=== PATIENT | male | born 1995 | race Caucasian/White ===

== ENCOUNTER 2018-02-26 12:26 | Emergency (ER) | payer BC, SELFPAY ==
[2018-02-26 12:29] VITALS: BP 159/98; PULSE 97; RESP 16; TEMP 37.4; O2SAT 97
--- NOTE | 2018-02-26 12:47 | ED.GENADUL ---
Disposition Clinical Impression: Ingrown left big toenail Disposition: HOME Condition: Fair Instructions: Ingrown Nail (ED) Additional Instructions: Warm soaks to left foot 5 times daily. Please try to keep the toe clean, he may use fingernail clippers to push the tissue away from the nail. Do not cut your nail at an angle, continue to cut them straight across. Please follow up with primary care within the next week if symptoms persist. If you develop spreading of the redness, fevers/chills, increased pain or other new/worsening symptoms please seek care urgently once again. Referrals: Chelsi Torres [Primary Care Provider] - Medical Decision Making - Medical Decision Making Patient presents today with chief complaint of toe pain ?1 month. On exam, patient is noted to have ingrown toenail on the lateral aspect of the great toe. Minimal erythema at the insertion site of the toenail. No surrounding cellulitis. No focal area of collection to suggest an abscess. He does report this is draining a few days ago. We did discuss that he may have developed a paronychia which is since drained. At this point, patient diagnosed with ingrown toenail. As I do not see an acute evidence of infection, I do not feel that removal of the nail is appropriate at this time. Noted feel the patient was treated with antibiotics. I rather advised that he do soaks 5-6 times daily. We discussed care of his toenails. Advise follow-up with primary care. He will call them today to schedule follow-up. We discussed new/worsening symptoms when to seek care urgently once again. All his questions and concerns were addressed and he is in agreement this plan. History of Present Illness - General Chief complaint: RashLesion Stated complaint: TOE INFECTION Time Seen by Provider: 02/26/18 12:45 Source: patient, RN notes reviewed Mode of arrival: ambulatory Limitations: no limitations - History of Present Illness Initial comments: Patient is a 22-year-old male presenting today with chief complaint of left great toe pain. He reports that the toe has been tender for the past month. He denies any fevers or chills. States that 3 days ago he noted pus coming from the lateral aspect of the great toe. He reports that he did contact his primary care physician who is not able to see him this afternoon prompting him to come to the emergency department. Has not noted any fevers or chills. Does feel that he got overheated at work today and felt suddenly nauseated. He denies any recent fevers or chills. States that he is pain primarily with pressure being applied to the great toe. Erythema and pain is lateral aspect of the great toe distally. - Related Data Ibuprofen 800 mg PO BID PRN PRN 07/14/14 Levalbuterol HCl [Xopenex] 1 puff PO PRN PRN 02/26/18 Allergies Allergy/AdvReac Type Severity Reaction Status Date / Time No Known Allergies Allergy Unverified 02/26/18 12:32 Review of Systems Constitutional: no symptoms reported. denies: chills, fever Respiratory: no symptoms reported Musculoskeletal: as per HPI Skin: as per HPI Neurological: as per HPI Past Medical History - Past Medical History Medical history: no medical history Surgical history: no surgical history General Exam - General Limitations: no limitations General appearance: alert, in no apparent distress - Eye Eye exam: Present: normal apperance - Respiratory Respiratory exam: Present: normal lung sounds bilaterally. Absent: respiratory distress - Cardiovascular Cardiovascular Exam: Present: regular rate, normal rhythm, normal heart sounds - Extremities Exam Extremities exam: Present: tenderness, normal capillary refill. Absent: normal inspection (Left lower extremity is significant for erythema along the lateral aspect of the great toe. No drainage currently. No swelling or fluid collection around the nail. Exam is consistent with an ingrown toenail. No signs of focal abscess. Erythema is localized to the lateral aspect of the toe. Erythema is noted. He is point tender at the nail insertion site.), joint swelling - Neurological Exam Neurological exam: Present: alert, normal gait - Psychiatric Psychiatric exam: Present: normal affect, normal mood - Skin Skin exam: Absent: normal color (As above) Course Vital Signs - 24 hr 02/26/18 12:29 Temperature 37.4 C Pulse 97 H Respiratory 16 Rate Blood Pressure 159/98 Pulse Oximetry 97
[2018-02-26 13:02] VITALS: BP 159/98; PULSE 97; RESP 16; TEMP 37.4; O2SAT 97
== END 2018-02-26 13:02 | disposition home or self-care (01) ==
PROVIDERS: Emergency Provider Student in an Organized Health Care Education/Training Program; PCP Family Medicine
DX: L60.0 Ingrowing nail (principal)
CPT/HCPCS: 99281

== ENCOUNTER 2018-09-27 10:00 | Emergency (ER) | payer OTHER, SELFPAY ==
[2018-09-27 10:09] VITALS: BP 134/82; PULSE 88; RESP 16; TEMP 36.6; O2SAT 93
[2018-09-27 10:28] VITALS: RESP 4; O2SAT 93
[2018-09-27] MEDS: Albuterol/Ipratropium 3 ML UPD VIAL UPD ×2 (10:28→11:15)
--- NOTE | 2018-09-27 10:48 | DI.RAD_ITS ---
SYMPTOMS/DIAGNOSIS: COUGH CHEST X-RAY, FRONTAL AND LATERAL VIEWS: Comparison is 04/20/11. The heart is normal in size. The lungs are clear. The mediastinal structures and pleura appear intact. IMPRESSION: Normal chest.
[2018-09-27 11:15] VITALS: RESP 4
[2018-09-27] MEDS: Normal Saline 1,000 ML 1000 ML IV (11:30)
[2018-09-27] MEDS: Ketorolac 30 MG/ML VIAL IVP (11:32)
[2018-09-27 11:42] LABS: Abs Immature Grans 0.02 k/cumm (0.0-0.09); Absolute Basophil Count 0.03 k/cumm (0.0-0.2); Absolute Eosinophil Count 0.52 k/cumm (0.0-0.7); Absolute Lymphocyte Count 1.72 k/cumm (1.2-3.4); Absolute Monocyte Count 0.73 k/cumm (0.11-0.7); Absolute Neutrophil Count 5.37 k/cumm (1.2-6.7); Basophils % 0.4; Eosinophils % 6.2; HCT 44.9 % (40.0-50.0); Immature Grans % 0.2; Lymphocytes % 20.5; Mean Corp. HGB Concentration 35.6 g/dL (32.0-36.0); Mean Corpuscular Hemoglobin 30.9 pg (27.0-33.0); Mean Corpuscular Volume 86.8 fL (80-95); Mean Platelet Volume 9.7 fL (8.0-11.0); Monocytes % 8.7; Platelet Count 224 x1000/uL (130-400); RBC 5.17 m/cumm (4.50-6.00); RBC Distribution Width 12.6 % (11.8-14.1); White Blood Cell Count 8.39 k/cumm (4.4-10.8)
--- NOTE | 2018-09-27 11:42 | W.ED.GENAD ---
Discharge Plan Disposition Patient Disposition: HOME Condition: Stable Discharge Details Chief Complaint: RespSymp Clinical Impression: Asthma exacerbation, Infection, respiratory tract Primary Care Provider: Chelsi Torres ED Provider: Kel Rodney Home Meds and New Rx's Prescriptions: New albuterol sulfate 1.25 mg/3 mL solution for nebulization 1.25 mg IH Q4H PRN (Reason: shortness of breath or wheezing) Qty: 75 RF: 0 prednisone 20 mg tablet 40 mg PO DAILY 5 Days Qty: 10 RF: 0 doxycycline hyclate 100 mg capsule 100 mg PO BID Qty: 14 RF: 0 Continued ibuprofen 800 MG tablet 800 mg PO BID PRN PRNRF: 0 levalbuterol HCl [Xopenex] 1.25 MG/3 ML solution for nebulization 1 puff PO PRN PRNRF: 0 guaifenesin 600 mg Tablet Extended Release 12hr 600 mg PO Q12H RF: 0 Discharge Instructions Instructions: Asthma (ED), Cold Symptoms (ED) Additional Instructions: Please take medications as prescribed and ensure that you complete the full course of antibiotics. Stay well-hydrated and get plenty of rest during illness and feel free to return to the emergency department for any new or worsening symptoms or further concerns you may have. If not improving towards in the antibiotics feel free to follow-up with your primary care provider as needed for reassessment. Stand Alone Forms: Work Release Referrals: Chelsi Torres [Primary Care Provider] - (As needed for reassessment) Discharge Data Discharge Date/Time-TO BE ENTERED AT DEPARTURE: 09/27/18 14:00 Medical Decision Making Patient presenting to the emergency department for chief complaint of cough and cold symptoms. Patient states that he has been fighting with an illness for 3 weeks with a cough for 2 weeks it resolved but then within the last week has had new and worsening symptoms that were worse than before. Patient states significant wheezing, chest tightness, cough. Patient does state history of asthma otherwise healthy. Review of vital signs does show mild hypoxia, diffuse wheezing throughout lung assessment, nontoxic appearing patient, there are other signs consistent with URI. Given duration of illness I do feel that labs, influenza testing, chest x-ray is warranted. Pending results patient given DuoNeb, IV fluids, ketorolac. Review of radiological imaging shows no acute findings within the chest, patient has no evidence of leukocytosis, flu negative, otherwise nondiagnostic non-worrisome labs. Given duration of symptoms patient was placed on doxycycline, given steroids for concern of asthma exacerbation, and encouraged to stay well-hydrated and follow-up with primary care provider for reassessment. Close return precautions were discussed. After discussion of diagnosis and plan of care patient has no further needs, questions, or concerns and states clear understanding to return to the emergency department for any worsening symptoms. HPI General Mode of arrival: ambulatory. Date/Time Provider Initiated Documentation: 09/27/18 10:27. Limitations to Documentation: no limitations. Information obtained by: patient and RN notes reviewed. History of Present Illness 22 year old M presents to the emergency department with the chief complaint of Cough and cold symptoms, described as moderate, with intensity rated at 7. Quality is described as aching, and is localized to the chest. Patient started experiencing this week(s) (1) and it has been constant. Patient did receive the following treatments prior to arrival, other (Albuterol treatment) Related Data Home Medications Medication Instructions Recorded Confirmed ibuprofen 800 mg PO BID PRN PRN 07/14/14 09/27/18 levalbuterol HCl [Xopenex] 1 puff PO PRN PRN 02/26/18 09/27/18 albuterol sulfate 1.25 mg IH Q4H PRN #75 ml 09/27/18 doxycycline hyclate 100 mg PO BID #14 cap 09/27/18 guaifenesin 600 mg PO Q12H 09/27/18 09/27/18 prednisone 40 mg PO DAILY 5 Days #10 tab 09/27/18 Previous Rx's Medication Instructions Recorded albuterol sulfate 1.25 mg IH Q4H PRN #75 ml 09/27/18 doxycycline hyclate 100 mg PO BID #14 cap 09/27/18 prednisone 40 mg PO DAILY 5 Days #10 tab 09/27/18 Allergies Allergy/AdvReac Type Severity Reaction Status Date / Time No Known Allergies Allergy Unverified 09/27/18 10:18 General Stated Complaint: RespSymp SELIN: 3 Review of Systems Constitutional Denies body ache(s), Denies chills, Denies fever(s), Denies headache(s) and Reports malaise Eyes Denies eye discharge ENT Reports as per HPI, Denies ear discharge, Denies otalgia, Denies headache(s), Reports nasal congestion, Denies nasal discharge, Denies neck pain, Reports sore throat and Denies throat swelling Cardiovascular Denies chest pain and Reports dyspnea Respiratory Reports cough and Reports dyspnea Musculoskeletal Denies joint swelling and Denies neck pain Integumentary/Breasts Denies rash Neurologic Denies headache(s) Allergic/Immunologic Denies throat swelling [facility] Medical History Environmental and seasonal allergies (Acute) Asthma (Chronic) Social History Smoking/Tobacco Use Status: Former Tobacco Use Alcohol Intake: current Alcohol Intake frequency: a few times a week Drug use: Occasionally Substance use type: marijuana Do you feel safe at home: Yes Do you feel safe in your relationship?: Yes Exam Const General: cooperative, comfortable and no acute distress Orientation: alert and awake HENMT Head: normal to inspection, normocephalic and atraumatic Ears: hearing grossly normal bilaterally and TM's normal bilaterally General nose exam: external nose normal Face and sinus: normal facial exam, sinuses nontender and no erythema Mouth: oral mucosae normal, no drooling, no muffled voice and no trismus Throat: posterior oropharynx normal, tonsils normal and uvula midline Neck Neck: normal visual inspection, full ROM, no meningeal signs, trachea midline, supple and lymphadenopathy (Left-sided cervical lymphadenopathy) Resp Effort & Inspection: normal respiratory effort, able to speak in complete sentences and cough Quality of cough: dry Auscultation: wheezes expiratory wheezes and scattered wheezes Cardio Rate: regular rate Rhythm: regular rhythm Heart Sounds: S1 normal, S2 normal, normal S1 and S2, no click, no gallops, no murmurs and no rubs Skin General skin exam: no rashes or lesions noted and dry skin (warm) Course Vital Signs Temperature 36.6 C 09/27/18 10:09 Pulse 88 09/27/18 10:09 Respiratory Rate 16 09/27/18 10:09 Blood Pressure 134/82 09/27/18 10:09 Pulse Oximetry 93 L 09/27/18 10:09 Temperature 36.6 C 09/27/18 10:09 Temperature Source Temporal Artery Scan 09/27/18 10:09 Pulse 88 09/27/18 10:09 Respiratory Rate 16 09/27/18 10:09 Respiratory Effort 09/27/18 10:16 Respiratory Depth Normal 09/27/18 10:16 Blood Pressure 134/82 09/27/18 10:09 Blood Pressure Position Sitting 09/27/18 10:09 Pulse Oximetry 93 L 09/27/18 10:28 Oxygen Delivery Method Room Air 09/27/18 10:28 Oxygen Flow Rate 0 09/27/18 10:28 Pain Level 6 09/27/18 10:09 Lab/Test Results Lab/Test Results: 09/27/18 11:20 Nasopharynx Influenza Types A,B Antigen - Pending
--- NOTE | 2018-09-27 11:45 | ED.GENADUL_ITS ---
Discharge Plan Disposition Patient Disposition: HOME Condition: Stable Discharge Details Chief Complaint: RespSymp Clinical Impression: Asthma exacerbation, Infection, respiratory tract Primary Care Provider: Chelsi Torres ED Provider: Kel Rodney Home Meds and New Rx's Prescriptions: New albuterol sulfate 1.25 mg/3 mL solution for nebulization 1.25 mg IH Q4H PRN (Reason: shortness of breath or wheezing) Qty: 75 RF: 0 prednisone 20 mg tablet 40 mg PO DAILY 5 Days Qty: 10 RF: 0 doxycycline hyclate 100 mg capsule 100 mg PO BID Qty: 14 RF: 0 Continued ibuprofen 800 MG tablet 800 mg PO BID PRN PRNRF: 0 levalbuterol HCl [Xopenex] 1.25 MG/3 ML solution for nebulization 1 puff PO PRN PRNRF: 0 guaifenesin 600 mg Tablet Extended Release 12hr 600 mg PO Q12H RF: 0 Discharge Instructions Instructions: Asthma (ED), Cold Symptoms (ED) Additional Instructions: Please take medications as prescribed and ensure that you complete the full course of antibiotics. Stay well-hydrated and get plenty of rest during illness and feel free to return to the emergency department for any new or worsening symptoms or further concerns you may have. If not improving towards in the antibiotics feel free to follow-up with your primary care provider as needed for reassessment. Stand Alone Forms: Work Release Referrals: Chelsi Torres [Primary Care Provider] - (As needed for reassessment) Discharge Data Discharge Date/Time-TO BE ENTERED AT DEPARTURE: 09/27/18 14:00 Medical Decision Making Patient presenting to the emergency department for chief complaint of cough and cold symptoms. Patient states that he has been fighting with an illness for 3 weeks with a cough for 2 weeks it resolved but then within the last week has had new and worsening symptoms that were worse than before. Patient states significant wheezing, chest tightness, cough. Patient does state history of asthma otherwise healthy. Review of vital signs does show mild hypoxia, diffuse wheezing throughout lung assessment, nontoxic appearing patient, there are other signs consistent with URI. Given duration of illness I do feel that labs, influenza testing, chest x-ray is warranted. Pending results patient given DuoNeb, IV fluids, ketorolac. Review of radiological imaging shows no acute findings within the chest, patient has no evidence of leukocytosis, flu negative, otherwise nondiagnostic non- worrisome labs. Given duration of symptoms patient was placed on doxycycline, given steroids for concern of asthma exacerbation, and encouraged to stay well- hydrated and follow-up with primary care provider for reassessment. Close return precautions were discussed. After discussion of diagnosis and plan of care patient has no further needs, questions, or concerns and states clear understanding to return to the emergency department for any worsening symptoms. HPI General Mode of arrival: ambulatory . Date/Time Provider Initiated Documentation: 09/27/18 10:27 . Limitations to Documentation: no limitations . Information obtained by: patient and RN notes reviewed . History of Present Illness 22 year old M presents to the emergency department with the chief complaint of Cough and cold symptoms, described as moderate, with intensity rated at 7. Quality is described as aching, and is localized to the chest. Patient started experiencing this week(s) (1) and it has been constant. Patient did receive the following treatments prior to arrival, other (Albuterol treatment) Related Data Home Medications Medication Instructions Recorded Confirmed ibuprofen 800 mg PO BID PRN PRN 07/14/14 09/27/18 levalbuterol HCl [Xopenex] 1 puff PO PRN PRN 02/26/18 09/27/18 albuterol sulfate 1.25 mg IH Q4H PRN #75 ml 09/27/18 doxycycline hyclate 100 mg PO BID #14 cap 09/27/18 guaifenesin 600 mg PO Q12H 09/27/18 09/27/18 prednisone 40 mg PO DAILY 5 Days #10 tab 09/27/18 Previous Rx's Medication Instructions Recorded albuterol sulfate 1.25 mg IH Q4H PRN #75 ml 09/27/18 doxycycline hyclate 100 mg PO BID #14 cap 09/27/18 prednisone 40 mg PO DAILY 5 Days #10 tab 09/27/18 Allergies Allergy/AdvReac Type Severity Reaction Status Date / Time No Known Allergies Allergy Unverified 09/27/18 10:18 General Stated Complaint: RespSymp SELIN: 3 Review of Systems Constitutional Denies body ache(s), Denies chills, Denies fever(s), Denies headache(s) and Reports malaise Eyes Denies eye discharge ENT Reports as per HPI, Denies ear discharge, Denies otalgia, Denies headache(s), Reports nasal congestion, Denies nasal discharge, Denies neck pain, Reports sore throat and Denies throat swelling Cardiovascular Denies chest pain and Reports dyspnea Respiratory Reports cough and Reports dyspnea Musculoskeletal Denies joint swelling and Denies neck pain Integumentary/Breasts Denies rash Neurologic Denies headache(s) Allergic/Immunologic Denies throat swelling [facility] [place] Medical History Environmental and seasonal allergies (Acute) Asthma (Chronic) Social History Smoking/Tobacco Use Status: Former Tobacco Use Alcohol Intake: current Alcohol Intake frequency: a few times a week Drug use: Occasionally Substance use type: marijuana Do you feel safe at home: Yes Do you feel safe in your relationship?: Yes Exam Const General: cooperative, comfortable and no acute distress Orientation: alert and awake HENMT Head: normal to inspection, normocephalic and atraumatic Ears: hearing grossly normal bilaterally and TM's normal bilaterally General nose exam: external nose normal Face and sinus: normal facial exam, sinuses nontender and no erythema Mouth: oral mucosae normal, no drooling, no muffled voice and no trismus Throat: posterior oropharynx normal, tonsils normal and uvula midline Neck Neck: normal visual inspection, full ROM, no meningeal signs, trachea midline, supple and lymphadenopathy (Left-sided cervical lymphadenopathy) Resp Effort & Inspection: normal respiratory effort, able to speak in complete sentences and cough Quality of cough: dry Auscultation: wheezes expiratory wheezes and scattered wheezes Cardio Rate: regular rate Rhythm: regular rhythm Heart Sounds: S1 normal, S2 normal, normal S1 and S2, no click, no gallops, no murmurs and no rubs Skin General skin exam: no rashes or lesions noted and dry skin (warm) Course Vital Signs Temperature 36.6 C 09/27/18 10:09 Pulse 88 09/27/18 10:09 Respiratory Rate 16 09/27/18 10:09 Blood Pressure 134/82 09/27/18 10:09 Pulse Oximetry 93 L 09/27/18 10:09 Temperature 36.6 C 09/27/18 10:09 Temperature Source Temporal Artery Scan 09/27/18 10:09 Pulse 88 09/27/18 10:09 Respiratory Rate 16 09/27/18 10:09 Respiratory Effort 09/27/18 10:16 Respiratory Depth Normal 09/27/18 10:16 Blood Pressure 134/82 09/27/18 10:09 Blood Pressure Position Sitting 09/27/18 10:09 Pulse Oximetry 93 L 09/27/18 10:28 Oxygen Delivery Method Room Air 09/27/18 10:28 Oxygen Flow Rate 0 09/27/18 10:28 Pain Level 6 09/27/18 10:09 Lab/Test Results Lab/Test Results: 09/27/18 11:20 Nasopharynx Influenza Types A,B Antigen - Pending
[2018-09-27 11:49] LABS: Mono Screening Negative (Negative)
[2018-09-27 12:00] LABS: ALT 34 U/L (12-78); AST 22 U/L (15-37); Albumin 4.3 g/dL (3.4-5.0); Alkaline Phosphatase 79 U/L (46-116); Anion Gap 10.6 mmol/L (3-11); BUN 13 mg/dL (7-18); Bilirubin, Total 0.7 mg/dL (0.2-1.0); CO2 28.4 mmol/L (21.0-32.0); CREATININE 1.07 mg/dL (0.70-1.30); Calcium 9.7 mg/dL (8.5-10.1); Chloride 101 mmol/L (98-107); Glucose 84 mg/dL (70-100); Potassium 3.8 mmol/L (3.5-5.1); Sodium 140 mmol/L (136-145); Total Protein 8.2 g/dL (6.4-8.2)
[2018-09-27 12:14] LABS: D-Dimer 214 ng/mlFEU (<500)
[2018-09-27] MEDS: predniSONE 20 MG TAB 60 MG PO (13:51)
[2018-09-27] MEDS: Doxycycline Hyclate 100 MG CAP PO (13:51)
[2018-09-27 13:53] VITALS: BP 139/90; PULSE 84; RESP 16; TEMP 37; O2SAT 96
[2018-09-27 14:00] VITALS: BP 139/90; PULSE 84; RESP 16; TEMP 37; O2SAT 96
== END 2018-09-27 14:00 | disposition home or self-care (01) ==
PROVIDERS: Emergency Provider Nurse Practitioner Family; PCP Family Medicine
DX: J45.901 Unspecified asthma with (acute) exacerbation (principal); J06.9 Acute upper respiratory infection, unspecified
CPT/HCPCS: 36415; 80053; 87449; 94640; 96361; 96374; 99284; 71046; 85025; 85379; 86308; J1885; J7512; J7620

== ENCOUNTER 2018-10-08 09:20 | Emergency (ER) | payer OTHER, SELFPAY ==
[2018-10-08 09:26] VITALS: BP 160/89; PULSE 101; RESP 18; TEMP 36.8; O2SAT 95
--- NOTE | 2018-10-08 10:01 | DI.RAD_ITS ---
SYMPTOM/DIAGNOSIS: PAIN, S/P FALL RIGHT ANKLE: There is a fracture extending obliquely through the distal fibula to the level of the ankle mortise. No distal tibial fracture or ankle mortise widening is seen. IMPRESSION: Distal fibular fracture. RIGHT FOOT: No fracture or dislocation is seen. IMPRESSION: Negative right foot. RIGHT TIB-FIB: There is a minimally displaced fracture of the lateral malleolus extending to the level of the ankle mortise. There is no visible ankle mortise widening. No fractures are seen more proximally in the tibia or fibula. IMPRESSION: Lateral malleolar fracture.
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
[2018-10-08] MEDS: Acetaminophen 500 MG TAB 1000 MG PO (10:06)
== END 2018-10-08 11:02 | disposition home or self-care (01) ==
PROVIDERS: Emergency Provider Emergency Medicine; PCP Family Medicine
DX: S82.831A Other fracture of upper and lower end of right fibula, initial encounter for closed fracture (principal); S80.11XA Contusion of right lower leg, initial encounter; S90.31XA Contusion of right foot, initial encounter; V86.02XA Driver of snowmobile injured in traffic accident, initial encounter
CPT/HCPCS: 27786; 99284; 73590; 73610; 73630; E0114; L4361

== ENCOUNTER 2018-10-17 10:19 | Outpatient (CLI) | payer OTHER, SELFPAY ==
--- NOTE | 2018-10-17 10:16 | DI.RAD_ITS ---
SYMPTOMS/DIAGNOSIS: F/U FRACTURE RIGHT ANKLE: A somewhat oblique projection of the right ankle is provided. On a previous examination of 10/08, note is made of an oblique fracture of the distal fibula which appears to be in anatomic position when compared with the previous images, however, if there is any further clinical question, a complete ankle series is suggested.
== END 2018-10-17 10:39 ==
PROVIDERS: PCP Family Medicine; Visit Provider Orthopaedic Surgery
DX: S82.831D Other fracture of upper and lower end of right fibula, subsequent encounter for closed fracture with routine healing (principal)
CPT/HCPCS: 73600

== ENCOUNTER 2018-10-31 11:39 | Outpatient (CLI) | payer OTHER, SELFPAY ==
--- NOTE | 2018-10-31 11:36 | DI.RAD_ITS ---
SYMPTOMS/DIAGNOSIS: F/U FX RIGHT ANKLE: When compared with previous images, again noted is a minimally displaced oblique fracture of the lateral malleolus. There is some early callus formation at the fracture margins and nothing to suggest that healing is not progressing normally.
== END 2018-10-31 11:59 ==
PROVIDERS: PCP Family Medicine; Visit Provider Orthopaedic Surgery
DX: S82.62XD Displaced fracture of lateral malleolus of left fibula, subsequent encounter for closed fracture with routine healing
CPT/HCPCS: 73610

== ENCOUNTER 2018-11-15 09:41 | Outpatient (CLI) | payer OTHER, SELFPAY ==
--- NOTE | 2018-11-15 09:37 | DI.RAD_ITS ---
SYMPTOMS/DIAGNOSIS: F/U FX RIGHT ANKLE: Three views were obtained. Previously described fracture of the distal fibula again noted which appears to be healing with no change in alignment in comparison with examination of 10/31.
== END 2018-11-15 10:01 ==
PROVIDERS: PCP Family Medicine; Visit Provider Orthopaedic Surgery
DX: S82.831D Other fracture of upper and lower end of right fibula, subsequent encounter for closed fracture with routine healing (principal)
CPT/HCPCS: 73610

== ENCOUNTER 2018-12-13 09:02 | Outpatient (CLI) | payer OTHER, SELFPAY ==
--- NOTE | 2018-12-13 08:58 | DI.RAD_ITS ---
SYMPTOMS/DIAGNOSIS: RT LATERAL MALLEOLUS FX RIGHT ANKLE: When compared with previous images, again noted is a fracture of the distal fibula with no interval change in apposition or alignment. There is nothing to suggest that healing is not progressing satisfactorily at the present time.
== END 2018-12-13 09:22 ==
PROVIDERS: PCP Family Medicine; Visit Provider Physician Assistant
DX: S82.64XD Nondisplaced fracture of lateral malleolus of right fibula, subsequent encounter for closed fracture with routine healing (principal)
CPT/HCPCS: 73600

== ENCOUNTER 2024-08-19 18:00 | Inpatient (IN) | payer SELFPAY ==
[2024-08-19] VITALS (39 sets, daily range): BP systolic 132–188; BP diastolic 71–104; PULSE 97–130; RESP 5–26; TEMP 36.8; O2SAT 92–100
[2024-08-19] MEDS: MAGNESIUM SULFATE 2 GM/50 ML BAG IV_INF (18:59)
--- NOTE | 2024-08-19 19:00 | DI.RAD_ITS ---
Exam(s) XR CHEST 2V PA LATERAL EXAM: XR CHEST 2V PA LATERAL CLINICAL HISTORY: flu A +, SOB TECHNIQUE: 2D digital imaging was performed of the chest. Two images were obtained. PA and lateral views were obtained. COMPARISON: CR XR CHEST 2V PA LATERAL from 09/27/2018 FINDINGS: MEDIASTINUM: Normal. HEART: Normal. PULMONARY VASCULATURE: Normal. LUNGS: There is mild peribronchial thickening which can be seen with bronchitis/reactive airways dise ase. No focal consolidating infiltrates are seen. PLEURAL SPACE: No pleural effusion or pneumothorax. BONE:Within normal limits for the patient's age. OTHER FINDINGS:Normal. IMPRESSION: Mild peribronchial thickening which can be seen with bronchitis/reactive airways disease. No focal c onsolidating infiltrates are seen. DATA REPOSITORY: RADIATION DOSE DELIVERED:
[2024-08-19] MEDS: Albuterol/Ipratropium 3 ML UPD VIAL 9 ML UPD (19:02)
[2024-08-19] MEDS: predniSONE 20 MG TAB 60 MG PO (19:03)
--- NOTE | 2024-08-19 19:08 | ED.GENADUL_ITS ---
Discharge Plan Disposition Patient Disposition: Admit to [facility] Discharge Details Clinical Impression: Influenza A, Asthma with severe exacerbation Primary Care Provider: Chelsi Torres ED Provider: Vandana Cano Home Meds and New Rx's Prescriptions: No Action albuterol sulfate 2.5 mg /3 mL (0.083 %) solution for nebulization 2.5 mg inhalation Q4H PRN (Reason: shortness of breath or wheezing) Qty: 180 0RF ibuprofen 800 MG tablet 800 mg PO BID PRN PRN levalbuterol HCl [Xopenex] 1.25 MG/3 ML solution for nebulization 1 puff PO PRN PRN albuterol sulfate 1.25 mg/3 mL solution for nebulization 1.25 mg IH Q4H PRN (Reason: shortness of breath or wheezing) Qty: 75 0RF HPI General Date/Time Provider Initiated Documentation: 08/19/24 18:14 . HPI Narrative: Wayne is a 28year old male who presents to the emergency department today for evaluation of asthma. He reports that he was treated for asthma exacerbation 1 week ago, completed 5-day course of prednisone 40 mg daily. Yesterday he started feeling unwell again, with increasing shortness of breath. Today developed subjective fever/chills, body aches, congestion, sore throat, nonproductive cough. Denies nausea/vomiting, abdominal pain, change in bowel or bladder function.. Past medical history is significant for asthma, has not required intubation but has been admitted for PNA in the past. Physical exam remarkable for significantly dyspneic patient. Tight wheezes throughout all lung bergman. Tachycardia, normal heart sounds. No cyanosis noted. D/dx includes but is not limited to: viral illness such as COVID-19 or flu, asthma exacerbation, pneumothorax, PNA I independently interpreted the following tests: COVID/flu positive for flu A. CXR reassuring, no obvious infiltrate noted (this was confirmed by radiologist). CBC, BMP, and VBG all reassuring. While in the emergency department, Wayne received aggressive management of asthma exacerbation with limited improvement of symptoms; a total of 3 DuoNeb's , followed by 2 additional albuterol nebulizers were given, as well as prednisone 60 mg p.o., Solu-Medrol 125 mg IV, and Magnesium sulfate 2 g. After receiving medications, Wayne continued to have significant work of breathing and wheezing as soon as the nebulizer it is completed. A 10 mg continuous albuterol nebulizer initiated. IV fluids given; Toradol given for body aches. Antiviral therapy with Tamiflu administered p.o. Vital signs have remained stable, however patient has remained tachycardic with heart rate in the 120s. No hypoxia or tachypnea noted. Discussed patient presentation and results with Dr. Argueta, [facility] hospitalist. Patient to be admitted for management of severe asthma exacerbation. Related Data Home Medications ?Medication ?Instructions ?Recorded ?Confirmed ibuprofen 800 mg tablet 800 mg PO BID PRN PRN 07/14/14 08/19/24 levalbuterol HCl 1.25 mg/3 mL 1 puff PO PRN PRN 02/26/18 08/19/24 solution for nebulization (Xopenex) albuterol sulfate 1.25 mg/3 mL 1.25 mg (3 mL) inhalation Q4H PRN 09/27/18 08/19/24 solution for nebulization shortness of breath or wheezing #75 mL albuterol sulfate 2.5 mg/3 mL 2.5 mg (3 mL) inhalation Q4H PRN 08/12/24 08/19/24 (0.083 %) solution for nebulization shortness of breath or wheezing #180 mL Previous Rx's ?Medication ?Instructions ?Recorded albuterol sulfate 1.25 mg/3 mL 1.25 mg (3 mL) inhalation Q4H PRN 09/27/18 solution for nebulization shortness of breath or wheezing #75 mL albuterol sulfate 2.5 mg/3 mL 2.5 mg (3 mL) inhalation Q4H PRN 08/12/24 (0.083 %) solution for nebulization shortness of breath or wheezing #180 mL Allergies Allergy/AdvReac Type Severity Reaction Status Date / Time No Known Allergies Allergy Unverified 08/19/24 18:08 General Stated Complaint: RespSymp SELIN: 4 Review of Systems Narrative: See HPI Exam Const General: cooperative, well developed, in distress respiratory, anxious and ill appearing Nutritional Appearance: average body habitus and well nourished Orientation: alert and oriented x3 Resp Effort & Inspection: labored, tripod positioning, uses accessory muscles and prolonged expiratory phase Auscultation: diminished lung sounds and wheezes expiratory wheezes, inspiratory wheezes and scattered wheezes Cardio Rate: tachycardic Rhythm: regular rhythm Skin General skin exam: no rashes or lesions noted Course Vital Signs Vital signs: Vital Signs Temperature 36.8 C 08/19/24 18:03 Pulse 112 H 08/19/24 18:03 Respiratory Rate 16 08/19/24 18:03 Blood Pressure 151/91 H 08/19/24 18:03 Pulse Oximetry 95 08/19/24 18:03 Temperature 36.8 C 08/19/24 18:31 Temperature Source Oral 08/19/24 18:31 Pulse 112 H 08/19/24 18:31 Respiratory Rate 16 08/19/24 18:31 Blood Pressure 151/91 H 08/19/24 18:31 Pulse Oximetry 95 08/19/24 18:31 Oxygen Delivery Method Room Air 08/19/24 18:31 Oxygen Flow Rate 0 08/19/24 18:31 Pain Level 6 08/19/24 18:31 Medical Decision Making Quality:SDOH Health Related Social Needs: No Data to Display PFSH All Active Problems (Updated 08/19/24 @ 22:53 by Vandana Harper) Asthma with severe exacerbation (Acute) Influenza A (Acute) Fracture of lateral malleolus of right ankle (Acute 10/08/18) Medical History (Updated 08/19/24 @ 22:53 by Vandana Harper) Environmental and seasonal allergies Asthma Social History Smoking/Tobacco Use Status: Never Smoking risk assessment performed?: Yes Alcohol Intake: current Alcohol Intake frequency: a few times a week Drug use: Occasionally Substance use type: does not use Do you feel safe at home: Yes Do you feel safe in your relationship?: Yes
--- NOTE | 2024-08-19 20:17 | DI.VRAD_ITS ---
PROCEDURE INFORMATION: Exam: XR Chest Exam date and time: 08/19/2024 7:32 PM Age: 28 years old Clinical indication: Shortness of breath; Flu a +, SOB TECHNIQUE: Imaging protocol: Radiologic exam of the chest. Views: 2 views. COMPARISON: CR XR CHEST 2V PA LATERAL 09/27/2018 11:54 AM FINDINGS: Lungs: There is mild central peribronchial thickening, increased from prior study. No pulmonary parenchymal airspace opacities are identified. There is no pulmonary vascular congestion. Pleural spaces: There are no pleural effusions present. There is no evidence of pneumothorax. Heart/Mediastinum: The cardiomediastinal silhouette is within normal limits. Bones/joints: Unremarkable. IMPRESSION: 1. Mild central peribronchial thickening, which can be seen in the setting of bronchitis. Recommend clinical correlation. 2. No pulmonary parenchymal airspace opacities identified. Dictated and Authenticated by: Christian Preciado MD. Orderin Anand Ross MD
[2024-08-19] MEDS: Albuterol 2.5 MG/3 ML INH SOLN VIAL UPD (20:52)
[2024-08-19] MEDS: methylPREDNISolone SUCC 125 MG VIAL IVP (20:52)
[2024-08-19] MEDS: Albuterol 2.5 MG/3 ML INH SOLN VIAL 10 MG UPD (21:35)
--- NOTE | 2024-08-19 21:56 | W.EDPROG ---
Date of service: 08/19/24 Time of Service: 23:02 Medical Decision Making Case discussed with nurse practitioner. A [id number] evaluation was provided by me secondary to medical complexity. Patient is a 28-year-old gentleman with past medical history of asthma. Presented with shortness of breath. Was found to have influenza A. Patient had received albuterol, magnesium, steroids and was still having some persistent difficulty with breathing. On my evaluation, he had a mild increase in work of breathing, no significant tachypnea. He was not hypoxic. I reviewed his chest x-ray which does not reveal a focal consolidation. The patient was started on a continuous albuterol nebulizer treatment. At this point will admit to the hospital for further management. He was given Tamiflu and IV fluids as well. Quality:SDNV Health Related Social Needs: No Data to Display Critical Care Time Critical Care Time Critical Care Time: Yes Total Critical Care Time: 35 Attestation: CRITICAL CARE Upon my evaluation, this patient had a high probability of imminent or life-threatening deterioration due to asthma exacerbation which required my direct attention, intervention, and personal management. I have personally provided 35 minutes of critical care time exclusive of time spent on separately billable procedures. Time includes review of laboratory data, radiology results, discussion with consultants, and monitoring for potential decompensation. Interventions were performed as documented above Discharge Plan Disposition Patient Disposition: Admit to [facility] Discharge Details Clinical Impression: Influenza A, Asthma with severe exacerbation Primary Care Provider: Chelsi Torres ED Provider: Vandana Cano Home Meds and New Rx's Prescriptions: No Action albuterol sulfate 2.5 mg /3 mL (0.083 %) solution for nebulization 2.5 mg inhalation Q4H PRN (Reason: shortness of breath or wheezing) Qty: 180 0RF ibuprofen 800 MG tablet 800 mg PO BID PRN PRN levalbuterol HCl [Xopenex] 1.25 MG/3 ML solution for nebulization 1 puff PO PRN PRN albuterol sulfate 1.25 mg/3 mL solution for nebulization 1.25 mg IH Q4H PRN (Reason: shortness of breath or wheezing) Qty: 75 0RF
[2024-08-19] MEDS: Oseltamivir 75 MG CAP PO (22:10)
[2024-08-19 22:16] LABS: Abs Immature Grans 0.04 10^3/uL (0.0-0.06); Absolute Basophil Count 0.02 10^3/uL (0.0-0.2); Absolute Eosinophil Count 0.11 10^3/uL (0.0-0.7); Absolute Lymphocyte Count 1.11 10^3/uL (1.2-3.4); Absolute Monocyte Count 0.76 10^3/uL (0.1-0.8); Basophils % 0.2 %; Eosinophils % 1.2 %; HCT 45.5 % (40.0-50.0); HGB 15.3 g/dL (13.5-17.5); Immature Grans % 0.4 %; Lymphocytes % 11.9 %; MCH 29.7 pg (27.0-33.0); MCHC 33.6 % (32.0-36.0); MCV 88 fL (80-95); MPV 9.9 fL (8.0-11.0); Monocytes % 8.1 %; Neutrophils % 78.2 %; Platelet Count 210 10^3/uL (130-400); RBC 5.15 10^6/uL (4.36-5.78); RDW 12.6 % (11.8-14.1); RDW-SD 41.1 fL; WBC 9.34 10^3/uL (4.4-10.8)
[2024-08-19] MEDS: Lactated Ringers 1,000 ML 1000 ML IV (22:18)
[2024-08-19 22:19] LABS: BE (Venous) 2 mmol/L (-2-3); HCO3 (Venous) 28 mmol/L (23-28); O2 Sat (Venous) 42 %; TCO2 (Venous) 24 mmol/L (24-29); pCO2 (Venous) 46 mmHg (41-51); pH (Venous) 7.38 (7.31-7.41); pO2 (Venous) 25 mmHg
[2024-08-19 22:31] LABS: Anion Gap 6.7 mmol/L (3-11); BUN 16 mg/dL (7-18); CO2 30.3 mmol/L (21.0-32.0); CREATININE 1.1 mg/dL (0.70-1.30); Calcium 9.3 mg/dL (8.5-10.1); Chloride 101 mmol/L (98-107); Estimated GFR 93.77 (mL/min/1.73m2); Glucose 135 mg/dL (74-106); Potassium 4.2 mmol/L (3.5-5.1); Sodium 138 mmol/L (136-145)
[2024-08-19] MEDS: Ketorolac 15 MG/ML VIAL IVP (23:28)
--- NOTE | 2024-08-19 23:59 | HPE_ITS ---
Date of service: 08/19/24 Time of Service: 23:59 Assessment and Plan Assessment and plan (1) Influenza A: Start date: 08/19/24 Status: Acute Assessment and plan: This is a 28-year-old gentleman who has chronic asthma and is a non-smoker. He is usually stable on his outpatient medical therapy but recently had exacerbation with short course of prednisone for 5 days. He began to feel acutely ill 1 day prior to presentation with fever and bodyaches as well as worsening dry cough presenting with no hypoxemia but tachypnea and severe wheezing with poor air movement. He did have a positive influenza screen. He is negative for COVID and RSV. He will be admitted for IV Solu-Medrol, aggressive nebulizer treatments and close monitoring in the ICU for respiratory failure the patient struggling with his breathing. He does feel better with initiation of treatment. He will be on Tamiflu 75 mg twice daily for 5 days. He is a full code. (2) Asthma with severe exacerbation: Start date: 08/19/24 Status: Acute Assessment and plan: Oxygen as needed but aggressive nebulizer treatments and Solu-Medrol IV. Supportive care with close monitoring in the ICU with patient's acute respiratory distress. He appears to be improving. VBG was reassuring. History of Present Illness History of Present Illness Chief Complaint: Acute onset of fever and chills, cough with sore throat after recent asthma Narrative: This is a 28-year-old gentleman with a history of asthma who recently treated as an outpatient for asthma exacerbation with a 5-day pulse of oral prednisone. He began to feel unwell the day prior to presentation and began to have fever and chills with bodyaches and a nonproductive cough with difficulty breathing and increased wheezing. He presented to the ED for evaluation and was found to have influenza A with significant bronchospasm but no hypoxemia. At time she was tripoding after the albuterol nebulizers would lose her affect. He was given Tamiflu orally and IV fluids with IV magnesium for resuscitation as well as Solu-Medrol IV. He continued to have difficulty breathing and will be admitted to the ICU for close observation for status asthmaticus. VBG was reassuring with pH of 7.38 and pCO2 46. Chest x-ray revealed no infiltrates. Left tachycardic but not significantly tachypneic. There was some concern that he may fatigue with his recurrent respiratory distress. He is a full code. Review of Systems Narrative: 13 point review of systems otherwise unrevealing or stable. Patient is a non- smoker. PFSH All Active Problems Asthma with severe exacerbation (Acute) Influenza A (Acute) Fracture of lateral malleolus of right ankle (Acute 10/08/18) Medical History Environmental and seasonal allergies Asthma Social History Smoking/Tobacco Use Status: Never Smoking risk assessment performed?: Yes Alcohol Intake: current Alcohol Intake frequency: a few times a week Drug use: Occasionally Substance use type: does not use Housing: house Do you feel safe at home: Yes Do you feel safe in your relationship?: Yes Meds Allergies and Home Medications Allergies Allergy/AdvReac Type Severity Reaction Status Date / Time No Known Allergies Allergy Unverified 08/19/24 18:08 Home Medications ?Medication ?Instructions ?Recorded ?Confirmed ?Type ibuprofen 800 mg tablet 800 mg PO BID PRN PRN 07/14/14 08/19/24 History levalbuterol HCl 1.25 mg/3 mL 1 puff PO PRN PRN 02/26/18 08/19/24 History solution for nebulization (Xopenex) albuterol sulfate 1.25 mg/3 mL 1.25 mg (3 mL) inhalation Q4H PRN 09/27/18 08/19/24 Rx solution for nebulization shortness of breath or wheezing #75 mL albuterol sulfate 2.5 mg/3 mL 2.5 mg (3 mL) inhalation Q4H PRN 08/12/24 08/19/24 Rx (0.083 %) solution for nebulization shortness of breath or wheezing #180 mL Exam Narrative Exam Narrative: General: Patient appears appropriate for age, moderate respiratory distress with dry cough and slight tachypnea at times. Alert and oriented x 3. He is moderately obese. HEENT: Normocephalic, eyes with pupils equal and reactive light symmetrically, extraocular movement intact and sclera anicteric. Oropharynx with dry mucosa and good dentition. Neck: Supple without JVD. Back: Normal posture without CVA tenderness. Lungs: Fair aeration with increased expiratory phase and diffuse expiratory wheeze without focalizing rales or rhonchi. No intercostal retractions. Heart: Tachycardic without murmur or gallop appreciated. Regular rhythm. Abdomen: Obese contour, soft and nontender to palpation with no palpable hepatosplenomegaly. No guarding or rebound. Bowel sounds positive all quadrants. Genitalia/rectal: Exam deferred. Extremities: Without clubbing, cyanosis or pitting edema. Peripheral pulses intact. Skin: Warm, and moist to palpation but normal color. Neuro: Cranial nerves II through XII grossly intact, no focal motor deficits. No tremor. Psych: Slightly anxious with short sentences because of respiratory distress. Normal mood and affect. No abnormal thought processes. Remote and recent memory intact. Results Imaging Imaging Studies: Exam: XR Chest Exam date and time: 08/19/2024 7:32 PM Age: 28 years old Clinical indication: Shortness of breath; Flu a +, SOB TECHNIQUE: Imaging protocol: Radiologic exam of the chest. Views: 2 views. COMPARISON: CR XR CHEST 2V PA LATERAL 09/27/2018 11:54 AM FINDINGS: Lungs: There is mild central peribronchial thickening, increased from prior study. No pulmonary parenchymal airspace opacities are identified. There is no pulmonary vascular congestion. Pleural spaces: There are no pleural effusions present. There is no evidence of pneumothorax. Heart/Mediastinum: The cardiomediastinal silhouette is within normal limits. Bones/joints: Unremarkable. IMPRESSION: 1. Mild central peribronchial thickening, which can be seen in the setting of bronchitis. Recommend clinical correlation. 2. No pulmonary parenchymal airspace opacities identified. Labs 08/19/24 19:05 08/19/24 22:16 Labs: Laboratory Results - last 24 hr 08/19/24 08/19/24 19:05 22:16 WBC 9.34 RBC 5.15 Hgb 15.3 Hct 45.5 MCV 88 MCH 29.7 MCHC 33.6 RDW 12.6 Plt Count 210 MPV 9.9 Immature Gran % 0.4 Neutrophils % 78.2 Lymphocytes % 11.9 Monocytes % 8.1 Eosinophils % 1.2 Basophils % 0.2 Nucleated RBC % 0.0 Absolute Neutrophils 7.30 H Absolute Lymphocytes 1.11 L Absolute Monocytes 0.76 Absolute Eosinophils 0.11 Absolute Basophils 0.02 VBG pH 7.38 VBG pCO2 46 VBG pO2 25 VBG HCO3 28 VBG Total CO2 24 VBG O2 Saturation 42 VBG Base Excess 2 Sodium 138 Potassium 4.2 Chloride 101 Carbon Dioxide 30.3 Anion Gap 6.7 BUN 16 Creatinine 1.1 Est GFR (CKD-EPI 2020) 93.77 Glucose 135 H Calcium 9.3 Last Vital Signs Temp 36.8 C 08/19/24 18:31 Pulse 97 H 08/19/24 23:31 Resp 18 08/19/24 23:31 BP 139/74 08/19/24 23:31 Pulse Ox 94 08/19/24 23:31 Time Spent Time spent with Patient: 55-74 minutes Time was spent: preparing to see the patient(eg.review tests), obtaining and/or reviewing separately otained hiistory, ordering medications,tests, procedures and indepentently interpreting results
[2024-08-20] VITALS (39 sets, daily range): BP systolic 135–151; BP diastolic 88–100; PULSE 85–128; RESP 5–26; TEMP 36.6–37.3; O2SAT 90–98
[2024-08-20] MEDS: Normal Saline Flush 10 ML SYR IVP ×4 (02:59→20:24)
[2024-08-20] MEDS: Albuterol/Ipratropium 3 ML UPD VIAL UPD ×4 (04:12→21:58)
[2024-08-20] MEDS: methylPREDNISolone SUCC 125 MG VIAL IVP (05:37)
[2024-08-20 06:01] LABS: HCT 43.3 % (40.0-50.0); HGB 15.2 g/dL (13.5-17.5); MCH 29.9 pg (27.0-33.0); MCHC 35.1 % (32.0-36.0); MCV 85 fL (80-95); MPV 9.6 fL (8.0-11.0); Platelet Count 225 10^3/uL (130-400); RBC 5.08 10^6/uL (4.36-5.78); RDW 12.6 % (11.8-14.1); RDW-SD 38.9 fL; WBC 8.17 10^3/uL (4.4-10.8)
[2024-08-20] MEDS: LORazepam 0.5 MG TAB PO (06:19)
[2024-08-20] MEDS: Acetaminophen 325 MG TAB PO ×2 (06:19→17:08)
[2024-08-20 06:25] LABS: ALT 44 U/L (16-63); AST 24 U/L (15-37); Albumin 3.7 g/dL (3.4-5.0); Alkaline Phosphatase 54 U/L (46-116); Anion Gap 7.7 mmol/L (3-11); BUN 15 mg/dL (7-18); Bilirubin, Total 0.46 mg/dL (0.2-1.0); CO2 26.3 mmol/L (21.0-32.0); Chloride 103 mmol/L (98-107); Estimated GFR 105.14 (mL/min/1.73m2); Glucose 195 mg/dL (74-106); Sodium 137 mmol/L (136-145); Total Protein 7.6 g/dL (6.4-8.2)
--- NOTE | 2024-08-20 07:51 | W.PC.ACHO ---
Registration Status: Primary Language: Preferred Language: ED Information & Data Chief Complaint RespSymp 08/19/24 19:10 Triage Note PT arrives to ED c/o 08/19/24 18:03 worsening resp. sx since last Monday. Pt states he took 40 mg of prednisone x 5 days starting Monday. Pt states resp. sx have not improved. Pt states his cough is non-productive. Pt states he has taken a total of 3 g of Tylenol today. Hx of asthma Medical / Surgical History (Last Reviewed 08/20/24 @ 00:00 by Bradley Argueta) Environmental and seasonal allergies Asthma Most Recent Vital Signs Temperature 36.6 C 08/20/24 02:26 Temperature Source Tympanic 08/20/24 02:26 Pulse 90 08/20/24 04:22 Pulse 91 H 08/20/24 02:00 Respiratory Rate 18 08/20/24 04:22 Respiratory Effort Short of Breath, Pursed Lip 08/20/24 02:26 Respiratory Depth Normal 08/20/24 02:26 Respiratory Pattern Normal 08/20/24 02:26 Blood Pressure 139/74 08/19/24 23:31 Blood Pressure Mean 91 08/19/24 23:31 Blood Pressure Position Sitting 08/20/24 02:26 Pulse Oximetry 98 08/20/24 04:22 Respiratory End-tidal CO2 37 08/20/24 02:00 Oxygen Delivery Method Nasal Cannula 08/20/24 04:12 Oxygen Flow Rate 2 08/20/24 04:12 Pain Level 0 08/20/24 02:26 Allergies No Known Allergies Allergy (Unverified 08/19/24 18:08) Precautions Isolation Droplet precaution 08/19/24 18:31 Active Medications Generic Name Dose Route Start Last Admin Trade Name Freq PRN Reason Stop Dose Admin Acetaminophen 0 mg 08/20/24 02:24 08/20/24 06:19 Acetaminophen 325 Mg Tab PO 650 mg Q4H PRN PRN Administration Methylprednisolone Sodium Succinate 125 mg 08/20/24 06:00 08/20/24 05:37 Methylprednisolone Succ 125 Mg Vial IVP 125 mg Q8H RICHARD Administration Sodium Chloride 0 ml 08/19/24 18:50 08/20/24 05:36 Normal Saline Flush 10 Ml Syr IVP 20 ml PRN PRN Administration Sodium Chloride 0 ml 08/19/24 20:00 08/20/24 02:59 Normal Saline Flush 10 Ml Syr IVP 10 ml BID RICHARD Administration IV IV Catheter Type [Left Saline Lock Antecubital] IV Catheter Gauge [Left 20 Antecubital] Diet Orders Category Date Time Status Regular/Normal [DIET] Nutrition 08/20/24 Breakfast Active Diagnostics 08/20/24 08/19/24 08/19/24 Range/Units 05:25 22:16 19:05 WBC 8.17 9.34 (4.4-10.8) 10^3/uL RBC 5.08 5.15 (4.36-5.78) 10^6/uL Hgb 15.2 15.3 (13.5-17.5) g/dL Hct 43.3 45.5 (40.0-50.0) % MCV 85 88 (80-95) fL MCH 29.9 29.7 (27.0-33.0) pg MCHC 35.1 33.6 (32.0-36.0) % RDW 12.6 12.6 (11.8-14.1) % Plt Count 225 210 (130-400) 10^3/uL MPV 9.6 9.9 (8.0-11.0) fL Immature Gran % 0.4 % Neutrophils % 78.2 % Lymphocytes % 11.9 % Monocytes % 8.1 % Eosinophils % 1.2 % Basophils % 0.2 % Nucleated RBC % 0.0 (0.0-0.3) % Absolute Neutrophils 7.30 H (1.2-6.7) 10^3/uL Absolute Lymphocytes 1.11 L (1.2-3.4) 10^3/uL Absolute Monocytes 0.76 (0.1-0.8) 10^3/uL Absolute Eosinophils 0.11 (0.0-0.7) 10^3/uL Absolute Basophils 0.02 (0.0-0.2) 10^3/uL VBG pH 7.38 (7.31-7.41) VBG pCO2 46 (41-51) mmHg VBG pO2 25 mmHg VBG HCO3 28 (23-28) mmol/L VBG Total CO2 24 (24-29) mmol/L VBG O2 Saturation 42 % VBG Base Excess 2 (-2-3) mmol/L Sodium 137 138 (136-145) mmol/L Potassium 5.0 4.2 (3.5-5.1) mmol/L Chloride 103 101 (98-107) mmol/L Carbon Dioxide 26.3 30.3 (21.0-32.0) mmol/L Anion Gap 7.7 6.7 (3-11) mmol/L BUN 15 16 (7-18) mg/dL Creatinine 1.0 1.1 (0.70-1.30) mg/dL Est GFR (CKD-EPI 2020) 105.14 93.77 (mL/min/1.73m2) Glucose 195 H 135 H (74-106) mg/dL Calcium 9.0 9.3 (8.5-10.1) mg/dL Total Bilirubin 0.46 (0.2-1.0) mg/dL AST 24 (15-37) U/L ALT 44 (16-63) U/L Alkaline Phosphatase 54 (46-116) U/L Total Protein 7.6 (6.4-8.2) g/dL Albumin 3.7 (3.4-5.0) g/dL Intake and Output - 24 Hour Total 08/19/24 18:00 thru 08/20/24 03:06 Intake Total 1060 Balance 1060 Weight 108.862 kg Intake: IV 1060 Falls Risk Assessment History of Falls No History 08/20/24 02:26 Contributing Factors No Factors 08/20/24 02:26 Ambulatory Aids Independent 08/20/24 02:26 Tubes/Lines W/no contributing factors 08/20/24 02:26 Gait Evaluation No gait disturbance 08/20/24 02:26 Cognition No cognitive impairment 08/19/24 18:32 Fall Total Score 10 08/20/24 02:26 Level of Risk Standard/Low Risk 08/20/24 02:26 Problems (Last Reviewed 08/20/24 @ 00:00 by Bradley Argueta) Asthma with severe exacerbation (Acute) Influenza A (Acute) v v v v v v v v v Sending and/or Receiving Nurses: Please use comment section below to note any information pertinent to the patient hand-off not included above. Information / Comments: Report received from: Елена Ho RN all questions answered: yes
[2024-08-20] MEDS: Enoxaparin 40 MG/0.4 ML SYR SC (07:54)
[2024-08-20] MEDS: Oseltamivir 75 MG CAP PO ×2 (07:54→20:23)
[2024-08-20] MEDS: Albuterol 2.5 MG/3 ML INH SOLN VIAL UPD ×2 (08:42→14:21)
--- NOTE | 2024-08-20 09:43 | INITIAL_ITS ---
Date of service: 08/20/24 Time of Service: 09:43 Care Management Initial Assmt Initial Assessment Reason for Hospitalization: Influenza A, Asthma Exacerbation Functional Status/Living Situation Patient Presentation: CM spoke with pt via phone. He shared that he had been living in [place] and recently moved back to the area. He is currently self employed and doesn't have health insurance and would appreciate a referral to [facility] to see if he would be eligible for medicaid and/or pt assistance. Town of Residence: [place] Resides with: Alone Significant Other/Family: Local Natural Supports: Supportive family Employment Status: Employed (Self employed contractor ) Instrumental Activities of Daily Living (ADLs): Independent Medications Medication Management: No Issues/Barriers identified and Issues/Barriers with Cost Advance Directives Advance Directives: Do you have an Advance Directive: N 07/04/14 10:20 AD On File at [facility]: N 07/04/14 10:20 Date Asked 08/19/24 08/19/24 18:06 AD Date Reviewed COLST On File at [facility] COLST Date Scanned Code Status Resuscitation Status Full Code Portal Pt does not currently have a portal and education provided: Yes Insurance Coverage/Financial Issues Insurance: None Financial Issues: [facility] referral Care Team Visit Care Team Role Provider Type Chelsi Torres Primary Care Provider NON-[facility] STAFF PHYSICIAN Vandana Harper Emergency Provider NURSE PRACTITIONER Bradley Argueta Admit Provider NON-[facility] STAFF PHYSICIAN Attending Provider Discharge Potential Discharge Needs: PCP F/U Appt Anticipated Barriers to Discharge: Medical Status Patient/Family Education Needs: Review discharge instructions, discuss Ask Me Three Transportation: Private vehicle Plan: Anticipate Wayne will discharge home with a plan to follow up with his PCP. He will be transported by family. [facility] referral to support pt with healthcare [facility]. Social Determinants of Health Screening Social Determinants of Health last assessed: 08/20/24 Will the Patient Participate in the Screening?: Yes Do you worry about having a steady place to live?: no Problems where you live: no known problems In the past 12 months, have you had to go without electric, gas, oil or water in your home?: no Have you or anyone in your house had to go without enough food to eat?: no Has lack of transportation kept you from medical appointments or from doing things needed for daily living?: no Has anyone in your life made you feel unsafe or unsupported?: no How hard is it for you to pay for the very basics like food, housing, medical care, and heating? Would you say it is:: Somewhat hard Do you want help finding or keeping work or a job?: I do not need or want help If for any reason you need help with day-to-day activities such as bathing, preparing meals, shopping, managing finances, etc., do you get the help you need?: I don?t need any help How often do you feel lonely or isolated from those around you?: Never Do you speak a language other than Divehi at home?: No Does the patient want assistance with any of the above?: No Health Related Social Needs Health related social needs: problems related to housing/economic circumstances (Z59.89) PFSH All Active Problems (Updated 08/20/24 @ 12:35 by Regina Hensley APRN) Discharge planning issues (Acute) On deep vein thrombosis (DVT) prophylaxis (Acute) Anxiety (Chronic) Asthma with severe exacerbation (Acute) Influenza A (Acute) Fracture of lateral malleolus of right ankle (Acute 10/08/18) Medical History (Updated 08/20/24 @ 12:35 by Regina Hensley APRN) Environmental and seasonal allergies Asthma Social History Smoking/Tobacco Use Status: Never Smoking risk assessment performed?: Yes Alcohol Intake: current Alcohol Intake frequency: a few times a week Drug use: Occasionally Substance use type: does not use Housing: house Do you feel safe at home: Yes Do you feel safe in your relationship?: Yes
--- NOTE | 2024-08-20 09:59 | W.NUTRFU ---
Date of service: 08/20/24 Time of Service: 09:59 Nutrition Note NOTE: Pt admitted ~10hours ago with Flu and asthma exac. Wt hx trends up with current BMI of 33.5 indicating class one obesity. Glucose at 195 this morning - pt ordered for steroids. Ordered for regular diet. Will check with nursing on on-going updates on appetite/intake and offer ONS as appropriate/desired. REcommendations: - if glucose >180 x 2 days would recommend basal insulin administration and corrections -don't see vitamin D lab hx - would recommend checking and supplementing to help with its role in immune health will monitor labs, weight, intake Time Spent in Nutritional Counseling and Treatment: 0
--- NOTE | 2024-08-20 10:10 | PGE_ITS ---
Date of Service Date of service: 08/20/24 Time of Service: 11:45 Assessment and Plan Assessment and plan (1) Influenza A: Start date: 08/19/24 Status: Acute Assessment and plan: Confirms a positive on admission Chest x-ray showed no opacities or consolidations Continue Tamiflu -day 2 of 5 As needed acetaminophen afebrile (2) Asthma with severe exacerbation: Start date: 08/19/24 Status: Acute Assessment and plan: Initially required oxygen supplementation, now on room air Transition IV Solu-Medrol to oral prednisone 60 mg p.o. daily Adding inhaled corticosteroid regimen with budesonide formoterol (3) Anxiety: Status: Chronic Assessment and plan: Lorazepam oral given in the ED for anxiety. Patient mentioned using THC outpatient Will initiate lorazepam 0.5 mg p.o. 3 times daily as needed as the patient seems to have developed an uptrend in his heart rate since admission He has no complaints of symptoms of ACS Continue to monitor (4) On deep vein thrombosis (DVT) prophylaxis: Status: Acute Assessment and plan: On Lovenox (5) Discharge planning issues: Status: Acute Assessment and plan: Initially ICU level admission downgraded to medical floor status today Most likely to be discharged home tomorrow without services follow-up with [facility] practitioner Discussed with Dr. Hopkins Subjective Subjective Patient reports: feels better, tolerating liquids well, tolerating a regular diet, voiding w/o difficulty, bowel movement, shortness of breath (Improving) and other (Reporting anxiety, use of THC outpatient mentioned that lorazepam given in the ED improved his anxiety); denies diarrhea, nausea, vomiting or fever Exam Narrative Exam Narrative: Constitutional Sitting in bed, slightly diaphoretic HENMT: Facial structures with normal appearance Neuro:alert and oriented to self, person, place time and situation. No neurological focal deficit, PERRLA Resp: Diffuse end-expiratory wheezing in both lungs, improve airflow with deep breathing and coughing throughout lung bergman?sat 92% on room air Cardio: Telemetry sinus tachycardia heart rate 92-1 30 on nonsustained, S1, S2, no murmur, bilateral radial and dorsalis pedis pulses are positive, palpable GI: Abdomen is not distended, soft and non tender, bowel sounds are present Back/spine/Pelvis: No back tenderness, normal alignment Integumentary: No skin lesions or rash Extremities: strength 5/5 to bilateral lower and upper extremities Psych: RASS 0, congruent functions mood and normal to anxious affect. Objective Last Vital Signs Temp 36.6 C 08/20/24 02:26 Pulse 115 H 08/20/24 09:00 Resp 17 08/20/24 09:00 BP 137/91 H 08/20/24 08:01 Pulse Ox 92 08/20/24 09:00 Laboratory Results - last 24 hr 08/19/24 08/19/24 08/20/24 19:05 22:16 05:25 WBC 9.34 8.17 RBC 5.15 5.08 Hgb 15.3 15.2 Hct 45.5 43.3 MCV 88 85 MCH 29.7 29.9 MCHC 33.6 35.1 RDW 12.6 12.6 Plt Count 210 225 MPV 9.9 9.6 Immature Gran % 0.4 Neutrophils % 78.2 Lymphocytes % 11.9 Monocytes % 8.1 Eosinophils % 1.2 Basophils % 0.2 Nucleated RBC % 0.0 Absolute Neutrophils 7.30 H Absolute Lymphocytes 1.11 L Absolute Monocytes 0.76 Absolute Eosinophils 0.11 Absolute Basophils 0.02 VBG pH 7.38 VBG pCO2 46 VBG pO2 25 VBG HCO3 28 VBG Total CO2 24 VBG O2 Saturation 42 VBG Base Excess 2 Sodium 138 137 Potassium 4.2 5.0 Chloride 101 103 Carbon Dioxide 30.3 26.3 Anion Gap 6.7 7.7 BUN 16 15 Creatinine 1.1 1.0 Est GFR (CKD-EPI 2020) 93.77 105.14 Glucose 135 H 195 H Calcium 9.3 9.0 Total Bilirubin 0.46 AST 24 ALT 44 Alkaline Phosphatase 54 Total Protein 7.6 Albumin 3.7 Time Spent with Patient Time Spent with Patient: >50 minutes Time was spent: preparing to see the patient(eg.review tests), obtaining and/or reviewing separately otained hiistory, ordering medications,tests, procedures, referring, communicating with other health care program director, indepentently interpreting results, counseling the patient and care coordination
[2024-08-20] MEDS: predniSONE 20 MG TAB 60 MG PO (11:56)
--- NOTE | 2024-08-20 12:32 | W.PC.ACHO ---
Registration Status: Primary Language: Preferred Language: ED Information & Data Chief Complaint RespSymp 08/19/24 19:10 Triage Note PT arrives to ED c/o 08/19/24 18:03 worsening resp. sx since last Monday. Pt states he took 40 mg of prednisone x 5 days starting Monday. Pt states resp. sx have not improved. Pt states his cough is non-productive. Pt states he has taken a total of 3 g of Tylenol today. Hx of asthma Medical / Surgical History (Last Reviewed 08/20/24 @ 00:00 by Bradley Argueta) Environmental and seasonal allergies Asthma Most Recent Vital Signs Temperature 37.3 C 08/20/24 08:00 Temperature Source Temporal Artery Scan 08/20/24 08:00 Pulse 112 H 08/20/24 11:12 Pulse 116 H 08/20/24 09:00 Respiratory Rate 18 08/20/24 10:54 Respiratory Effort Short of Breath, Pursed Lip 08/20/24 02:26 Respiratory Depth Normal 08/20/24 02:26 Respiratory Pattern Normal 08/20/24 02:26 Blood Pressure 137/91 H 08/20/24 08:01 Blood Pressure Mean 105 08/20/24 08:01 Blood Pressure Position Sitting 08/20/24 02:26 Pulse Oximetry 92 08/20/24 11:12 Respiratory End-tidal CO2 30 08/20/24 03:00 Oxygen Delivery Method Room Air 08/20/24 10:54 Oxygen Flow Rate 0 08/20/24 10:54 Pain Level 0 08/20/24 12:16 Comment see captured vital signs, generalized body aches related to influenza and sore stomach and chest muscles r/t coughing, somewhat relieved with tylenol. 08/20/24 08:00 Allergies No Known Allergies Allergy (Unverified 08/19/24 18:08) Precautions Isolation Droplet precaution 08/19/24 18:31 Active Medications Generic Name Dose Route Start Last Admin Trade Name Freq PRN Reason Stop Dose Admin Acetaminophen 0 mg 08/20/24 02:24 08/20/24 06:19 Acetaminophen 325 Mg Tab PO 650 mg Q4H PRN PRN Administration Albuterol Sulfate 2.5 mg 08/20/24 02:24 08/20/24 08:42 Albuterol 2.5 Mg/3 Ml Inh Soln Vial UPD 2.5 mg Q1H PRN PRN Administration Albuterol/Ipratropium 3 ml 08/20/24 10:00 08/20/24 10:54 Albuterol/Ipratropium 3 Ml Upd Vial UPD 3 ml Q6H RICHARD Administration Enoxaparin Sodium 40 mg 08/20/24 08:30 08/20/24 07:54 Enoxaparin 40 Mg/0.4 Ml Syr SC 40 mg Q24H RICHARD Administration Oseltamivir Phosphate 75 mg 08/20/24 08:30 08/20/24 07:54 Oseltamivir 75 Mg Cap PO 75 mg BID RICHARD Administration Prednisone 60 mg 08/20/24 11:35 08/20/24 11:56 Prednisone 20 Mg Tab PO 60 mg DAILY RICHARD Administration Sodium Chloride 0 ml 08/19/24 18:50 08/20/24 05:36 Normal Saline Flush 10 Ml Syr IVP 20 ml PRN PRN Administration Sodium Chloride 0 ml 08/19/24 20:00 08/20/24 07:54 Normal Saline Flush 10 Ml Syr IVP 10 ml BID RICHARD Administration IV IV Catheter Type [Left Saline Lock Antecubital] IV Catheter Gauge [Left 20 Antecubital] Diet Orders Category Date Time Status Regular/Normal [DIET] Nutrition 08/20/24 Breakfast Active Diagnostics 08/20/24 08/19/24 08/19/24 Range/Units 05:25 22:16 19:05 WBC 8.17 9.34 (4.4-10.8) 10^3/uL RBC 5.08 5.15 (4.36-5.78) 10^6/uL Hgb 15.2 15.3 (13.5-17.5) g/dL Hct 43.3 45.5 (40.0-50.0) % MCV 85 88 (80-95) fL MCH 29.9 29.7 (27.0-33.0) pg MCHC 35.1 33.6 (32.0-36.0) % RDW 12.6 12.6 (11.8-14.1) % Plt Count 225 210 (130-400) 10^3/uL MPV 9.6 9.9 (8.0-11.0) fL Immature Gran % 0.4 % Neutrophils % 78.2 % Lymphocytes % 11.9 % Monocytes % 8.1 % Eosinophils % 1.2 % Basophils % 0.2 % Nucleated RBC % 0.0 (0.0-0.3) % Absolute Neutrophils 7.30 H (1.2-6.7) 10^3/uL Absolute Lymphocytes 1.11 L (1.2-3.4) 10^3/uL Absolute Monocytes 0.76 (0.1-0.8) 10^3/uL Absolute Eosinophils 0.11 (0.0-0.7) 10^3/uL Absolute Basophils 0.02 (0.0-0.2) 10^3/uL VBG pH 7.38 (7.31-7.41) VBG pCO2 46 (41-51) mmHg VBG pO2 25 mmHg VBG HCO3 28 (23-28) mmol/L VBG Total CO2 24 (24-29) mmol/L VBG O2 Saturation 42 % VBG Base Excess 2 (-2-3) mmol/L Sodium 137 138 (136-145) mmol/L Potassium 5.0 4.2 (3.5-5.1) mmol/L Chloride 103 101 (98-107) mmol/L Carbon Dioxide 26.3 30.3 (21.0-32.0) mmol/L Anion Gap 7.7 6.7 (3-11) mmol/L BUN 15 16 (7-18) mg/dL Creatinine 1.0 1.1 (0.70-1.30) mg/dL Est GFR (CKD-EPI 2020) 105.14 93.77 (mL/min/1.73m2) Glucose 195 H 135 H (74-106) mg/dL Calcium 9.0 9.3 (8.5-10.1) mg/dL Total Bilirubin 0.46 (0.2-1.0) mg/dL AST 24 (15-37) U/L ALT 44 (16-63) U/L Alkaline Phosphatase 54 (46-116) U/L Total Protein 7.6 (6.4-8.2) g/dL Albumin 3.7 (3.4-5.0) g/dL Intake and Output - 24 Hour Total 08/19/24 18:00 thru 08/20/24 03:06 Intake Total 1060 Balance 1060 Weight 108.862 kg Intake: IV 1060 Falls Risk Assessment History of Falls No History 08/20/24 02:26 Contributing Factors No Factors 08/20/24 02:26 Ambulatory Aids Independent 08/20/24 02:26 Tubes/Lines W/no contributing factors 08/20/24 02:26 Gait Evaluation No gait disturbance 08/20/24 02:26 Cognition No cognitive impairment 08/19/24 18:32 Fall Total Score 10 08/20/24 02:26 Level of Risk Standard/Low Risk 08/20/24 02:26 Problems (Last Reviewed 08/20/24 @ 00:00 by Bradley Argueta) Asthma with severe exacerbation (Acute) Influenza A (Acute) v v v v v v v v v Sending and/or Receiving Nurses: Please use comment section below to note any information pertinent to the patient hand-off not included above. Information / Comments: Report received from: Savannah Casas. Pt taken to [address] via wheelchair with mother by his side
[2024-08-20] MEDS: Budesonide/Formoterol 80/4.5 6.9 GM 60 PUFF INH IH ×2 (13:12→20:40)
--- NOTE | 2024-08-20 13:56 | PHA.REVIEW2 ---
Pharmacy Admission Review Admission Clinical Review Admission Pharmacy Review: Discharge planning issues (Acute) On deep vein thrombosis (DVT) prophylaxis (Acute) Asthma with severe exacerbation (Acute) Influenza A (Acute) No Known Allergies Allergy (Unverified 08/19/24 18:08) Resuscitation Status Full Code Height 5 ft 11 in Weight 108.862 kg Comments Comments/Follow Ups: Watch BP, HR, labs and for med changes Pharmacy Admission Review Renal Dosing Renal Dosing: BUN 15 mg/dL (7-18) 08/20/24 05:25 Creatinine 1.0 mg/dL (0.70-1.30) 08/20/24 05:25 Medications needing adjustments: Reviewed (Crcl ~138 mL/min current meds okay) Anticoagulation Anticoagulation: Hgb 15.2 g/dL (13.5-17.5) 08/20/24 05:25 Hct 43.3 % (40.0-50.0) 08/20/24 05:25 Plt Count 225 10^3/uL (130-400) 08/20/24 05:25 Creatinine 1.0 mg/dL (0.70-1.30) 08/20/24 05:25 DVT Prophylaxis: Reviewed Medications: Enoxaparin Opiate Usage Evaluate Pain Scale/Pains Meds: N/A Relevant Labs Relevant Labs: Sodium 137 mmol/L (136-145) 08/20/24 05:25 Potassium 5.0 mmol/L (3.5-5.1) 08/20/24 05:25 Chloride 103 mmol/L (98-107) 08/20/24 05:25 Electrolytes, C-Reactive P, ESR: Reviewed DM Control DM Control: Glucose 195 mg/dL (74-106) H 08/20/24 05:25 DM Control: Reviewed (No DM in medical history, no A1c on file, patient is on steroids) Cardiac Review BP, HR, EF%: Reviewed (BP and HR have been normal to high so far this admission.) QTc Review QTc: N/A IV to PO Switch IV Medications: Reviewed Home Meds Home Med List reviewed: Reviewed (duplicate class but different dosage forms, levalbuterol inhaler and albuterol nebs ) Relevent Home Meds Not ordered & why?: levalbuterol (PRN and has albuterol ordered), ibuprofen (PRN) Current Meds Current Medication Order Review: Intervened (discontinued duplicate med order, adjusted a few meds per medical imaging director time policy) Comments Comments/Follow Ups: Watch BP, HR, labs and for med changes
[2024-08-21] VITALS (12 sets, daily range): BP systolic 126–134; BP diastolic 84–99; PULSE 92–115; RESP 5–22; TEMP 36.3–37.2; O2SAT 91–97
[2024-08-21] MEDS: Albuterol/Ipratropium 3 ML UPD VIAL UPD ×2 (04:45→11:19)
[2024-08-21 07:28] LABS: HCT 44.1 % (40.0-50.0); HGB 15.2 g/dL (13.5-17.5); MCH 29.9 pg (27.0-33.0); MCHC 34.5 % (32.0-36.0); MCV 87 fL (80-95); MPV 9.5 fL (8.0-11.0); Platelet Count 219 10^3/uL (130-400); RBC 5.09 10^6/uL (4.36-5.78); RDW 12.4 % (11.8-14.1); RDW-SD 39.6 fL; WBC 14.98 10^3/uL (4.4-10.8)
[2024-08-21 07:43] LABS: ALT 36 U/L (16-63); AST 15 U/L (15-37); Albumin 3.5 g/dL (3.4-5.0); Alkaline Phosphatase 50 U/L (46-116); Anion Gap 6.5 mmol/L (3-11); BUN 19 mg/dL (7-18); CO2 30.5 mmol/L (21.0-32.0); CREATININE 0.9 mg/dL (0.70-1.30); Calcium 9.2 mg/dL (8.5-10.1); Chloride 105 mmol/L (98-107); Estimated GFR 119.31 (mL/min/1.73m2); Glucose 99 mg/dL (74-106); Potassium 4.3 mmol/L (3.5-5.1); Sodium 142 mmol/L (136-145)
[2024-08-21] MEDS: Albuterol 2.5 MG/3 ML INH SOLN VIAL UPD ×2 (08:26→13:52)
[2024-08-21] MEDS: Budesonide/Formoterol 80/4.5 6.9 GM 60 PUFF INH IH (08:35)
--- NOTE | 2024-08-21 08:55 | PDOC.CMDIS ---
Date of service: 08/21/24 Time of Service: 08:55 LACE Index Scoring Tool Questions: Length of Stay (in days): 2 Was the patient admitted via the E.D.?: Yes Comorbidities: Chronic Pulmonary Disease (Asthma) E.D. Visits: 1 Answers: Total Score: 8 Risk of Readmission: Low Risk Care Management Discharge Plan Reason for Hospitalization: Asthma exacerbation Discharge Plan: Wayne is being discharged home with a plan to follow-up with his PCP and discharge plan of care as directed. Nebulizer machine from [employer] is given to patient. RX's are sent to [facility] [employer] [employer], Good RX discount card is applied. Wayne may apply for Patient Financial Assistance offered by [facility] if he doesn't qualify for Health Care Coverage and is encouraged to follow up with [facility]. Patient/Family Education Needs: Review discharge instructions, limitations, medications and plan to follow up with community providers. Discuss ask me three. SDOH Health Related Social Needs: Health related social needs problems related to housing/economic circumstances (Z59.89)
[2024-08-21] MEDS: predniSONE 20 MG TAB 60 MG PO (09:04)
[2024-08-21] MEDS: Oseltamivir 75 MG CAP PO (09:04)
[2024-08-21] MEDS: Enoxaparin 40 MG/0.4 ML SYR SC (09:05)
--- NOTE | 2024-08-21 12:36 | DSE_ITS ---
Date of service: 08/21/24 Time of Service: 12:36 DS: Diagnosis Discharge Diagnosis (1) Influenza A: Status: Acute (2) Asthma with severe exacerbation: Status: Acute (3) Anxiety: Status: Chronic (4) On deep vein thrombosis (DVT) prophylaxis: Status: Acute (5) Discharge planning issues: Status: Acute Discharge Plan Disposition Patient Disposition: Home Condition: Improving Discharge Details Reason For Visit: Influenza A, Acute asthma exacerbation Admit Date/Time: 08/19/24 23:59 Admit Provider: Bradley Argueta Attending Provider: Bradley Argueta Primary Care Provider: Chelsi Torres [facility] Course Hospital Course: This 28 years old male patient with a past medical history of asthma recently treated for asthma exacerbation outpatient with a 5-day course of oral prednisone presented to the ED at [facility] on 08/19/2024 for complaints of malaise the day prior to presentation with fevers, chills and bodyaches as well as nonproductive cough with difficulty breathing and increased wheezing. Workup in the ED was significant for findings of influenza A infection with significant bronchospasms and hypoxemia. Other blood work were unremarkable. Was no infiltrate on chest x-ray but imaging was suspicious for bronchitis. The patient required ongoing oxygen therapy for persistent hypoxia. In the ED the patient was treated with nebulizer treatment, Tamiflu, IV fluid and IV magnesium. Hospitalist services admitted the patient to the ICU for evaluation and management of hypoxic respiratory failure, influenza A infection and asthma exacerbation. On the next day, the patient was downgraded to medical surgical services were he continued to receive nebulizer treatment, Tamiflu with initiation of inhaled corticosteroids.The patient mentioned using THC at home and having anxiety at this time. As needed lorazepam low-dose was ordered and was effective. The patient no longer requires oxygen transition for the past 24 hours at this time and was able to ambulate with RT without decompensation. The patient will be discharged home and will need to follow-up with his primary care practitioner. A pulmonology referral will also be completed. The patient will be discharged home with a new nebulizer machine . The patient will be also discharged home with inhaled corticosteroids that will be initially scheduled then taper to as needed as per guidance from SMART therapy in asthma. 1 day course of ipratropium and albuterol nebulizer will be dispensed by pharmacy and will be able to pickup at the drugstore tomorrow. Prescriptions for prednisone taper and oseltamivir were also sent to pharmacy. Discussed with Dr. Hopkins Home Meds and New Rx's Prescriptions: New ipratropium-albuterol 0.5 mg-3 mg(2.5 mg base)/3 mL Solution For Nebulization 3 ml UPD Q6H Qty: 90 0RF budesonide-formoterol [Symbicort] 80-4.5 mcg/actuation Hfa Aerosol Inhaler 2 puff inhalation BID Qty: 10.2 0RF oseltamivir 75 mg Capsule 75 mg PO BID Qty: 6 0RF prednisone 20 mg Tablet 60 mg PO DAILY Qty: 21 0RF Rx Instructions: take 60 mg X 5 days then 40 mg X 3 days Continued albuterol sulfate 2.5 mg /3 mL (0.083 %) solution for nebulization 2.5 mg inhalation Q4H PRN (Reason: shortness of breath or wheezing) Qty: 180 0RF ibuprofen 800 MG tablet 800 mg PO BID PRN PRN levalbuterol tartrate 45 mcg/actuation HFA aerosol inhaler 2 puff INHALATION Q4H PRN Patient Comments: INHALE 2 PUFFS BY MOUTH EVERY 4 TO 6 HOURS NEEDED FOR SHORTNESS OF BREATH Discharge Instructions Stand Alone Forms: Nursing Discharge Form Referrals: Chelsi Torres [Primary Care Provider] - 08/28/24 1:15 pm Montserrat Sheldon PA [PHYSICIANS ASSOCIATE CURATOR] - (A referral has been sent for you, they should call you, you may also call them to follow up. ) Activity:: Activity as Tolerated Equipment/Supplies:: No Equipment Needed Diet:: As Tolerated DS: Summary Time Spent with Patient providing and/or coordinating discharge services: Greater than 30 minutes Status at Discharge Functional status at discharge: independent ambulation Overall status at discharge: patient is progressing back to baseline Mental Status: mental status grossly normal Speech and Movement: speech and movement normal Mood: congruent mood Affect: normal affect Quality:SDOH Health Related Social Needs: Health related social needs problems related to housin g/economic circumstances (Z59.89) Exam Narrative Exam Narrative: Constitutional Sitting in bed, slightly diaphoretic HENMT: Facial structures with normal appearance Neuro:alert and oriented X4, non-focal Resp: improved airflow w diminished bases, no wheezing-,on RA Cardio: Telemetry SR 98, S1, S2, no murmur GI: Abdomen is not distended, soft and non tender, bowel sounds are present Integumentary: No skin lesions or rash Extremities: strength 5/5 to bilateral lower and upper extremities Psych: RASS 0, congruent functions mood and normal to anxious affect. Psych Mental Status: mental status grossly normal Speech and Movement: speech and movement normal Mood: congruent mood Affect: normal affect DS: Data Vitals/I&O Vitals and I&O: Vital Signs Temperature 36.5 C 08/21/24 07:47 Temperature Source Temporal Artery Scan 08/21/24 07:47 Pulse 107 H 08/21/24 11:30 Pulse 116 H 08/20/24 09:00 Respiratory Rate 22 08/21/24 08:38 Respiratory Effort Short of Breath, Pursed Lip 08/20/24 02:26 Respiratory Depth Normal 08/20/24 02:26 Respiratory Pattern Normal 08/20/24 02:26 Blood Pressure 134/99 H 08/21/24 07:47 Blood Pressure Mean 105 08/20/24 08:01 Blood Pressure Position Sitting 08/20/24 02:26 Pulse Oximetry 92 08/21/24 11:19 Respiratory End-tidal CO2 30 08/20/24 03:00 Oxygen Delivery Method Room Air 08/21/24 11:19 Oxygen Flow Rate 0 08/21/24 11:19 Pain Level 0 08/21/24 07:47 Comment BP cycled twice, pT reports he feels ok. RN notified. 08/20/24 15:57 Intake & Output 08/20/24 08/21/24 08/21/24 23:59 11:59 23:59 Intake Total 410 / 420 Balance 410 / 420 Intake: IV Oral 400 / 400 Other: Urine Color Yellow Urine Odor Normal Comment pT reports he has voided today. pT reports has voided independently. Data Completed and Pending Labs on day of discharge: Labs from last 24 hours 08/21/24 06:50 WBC 14.98 H RBC 5.09 Hgb 15.2 Hct 44.1 MCV 87 MCH 29.9 MCHC 34.5 RDW 12.4 Plt Count 219 MPV 9.5 Sodium 142 Potassium 4.3 Chloride 105 Carbon Dioxide 30.5 Anion Gap 6.5 BUN 19 H Creatinine 0.9 Est GFR (CKD-EPI 2020) 119.31 Glucose 99 Calcium 9.2 Total Bilirubin 0.50 AST 15 ALT 36 Alkaline Phosphatase 50 Total Protein 7.0 Albumin 3.5 PFSH All Active Problems (Updated 08/20/24 @ 12:35 by Regina Hensley APRN) Discharge planning issues (Acute) On deep vein thrombosis (DVT) prophylaxis (Acute) Anxiety (Chronic) Asthma with severe exacerbation (Acute) Influenza A (Acute) Fracture of lateral malleolus of right ankle (Acute 10/08/18) Medical History (Updated 08/20/24 @ 12:35 by Regina Hensley APRN) Environmental and seasonal allergies Asthma Social History Smoking/Tobacco Use Status: Never Smoking risk assessment performed?: Yes Alcohol Intake: current Alcohol Intake frequency: a few times a week Drug use: Occasionally Substance use type: does not use Housing: house Do you feel safe at home: Yes Do you feel safe in your relationship?: Yes Time Spent with Patient Time Spent with Patient: 70-84 minutes4 Time was spent: preparing to see the patient(eg.review tests), obtaining and/or reviewing separately otained hiistory, ordering medications,tests, procedures, referring, communicating with other health vehicle care specialist, indepentently interpreting results, counseling the patient and care coordination
--- NOTE | 2024-08-21 12:51 | W.PM.DS.N ---
DS: Diagnosis Discharge Diagnosis (1) Influenza A: Status: Acute (2) Asthma with severe exacerbation: Status: Acute (3) Anxiety: Status: Chronic (4) On deep vein thrombosis (DVT) prophylaxis: Status: Acute (5) Discharge planning issues: Status: Acute Discharge Plan Disposition Patient Disposition: Home Condition: Improving Discharge Details Reason For Visit: Influenza A, Acute asthma exacerbation Admit Date/Time: 08/19/24 23:59 Admit Provider: Bradley Argueta Attending Provider: Bradley Argueta Primary Care Provider: Chelsi Torres [facility] Course Hospital Course: This 28 years old male patient with a past medical history of asthma recently treated for asthma exacerbation outpatient with a 5-day course of oral prednisone presented to the ED at [facility] on 08/19/2024 for complaints of malaise the day prior to presentation with fevers, chills and bodyaches as well as nonproductive cough with difficulty breathing and increased wheezing. Workup in the ED was significant for findings of influenza A infection with significant bronchospasms and hypoxemia. Other blood work were unremarkable. Was no infiltrate on chest x-ray but imaging was suspicious for bronchitis. The patient required ongoing oxygen therapy for persistent hypoxia. In the ED the patient was treated with nebulizer treatment, Tamiflu, IV fluid and IV magnesium. Hospitalist services admitted the patient to the ICU for evaluation and management of hypoxic respiratory failure, influenza A infection and asthma exacerbation. On the next day, the patient was downgraded to medical surgical services were he continued to receive nebulizer treatment, Tamiflu with initiation of inhaled corticosteroids. The patient exhibited some tachycardia up to 130s without signs of ACS. The patient mentioned using THC at home and having anxiety at this time. As needed lorazepam low-dose was ordered. Heart rate trending down to 92 to low 100. The patient no longer requires oxygen transition for the past 24 hours at this time and was able to ambulate with RT without decompensation. The patient will be discharged home and will need to follow-up with his primary care practitioner. A pulmonology referral will also be completed. The patient will be discharged home with home with a new nebulizer machine from [facility]. The patient will be also discharged home with inhaled corticosteroids that will be initially scheduled then taper to as needed as per guidance of his primary care practitioner. 1 day course of ipratropium and albuterol nebulizer will be dispensed by pharmacy and will be able to go for pickup at the drugstore tomorrow. Prescriptions for prednisone taper, oseltamivir were also sent to pharmacy. Discussed with Dr. Hopkins Home Meds and New Rx's Prescriptions: New ipratropium-albuterol 0.5 mg-3 mg(2.5 mg base)/3 mL Solution For Nebulization 3 ml UPD Q6H Qty: 90 0RF budesonide-formoterol [Symbicort] 80-4.5 mcg/actuation Hfa Aerosol Inhaler 2 puff inhalation BID Qty: 10.2 0RF oseltamivir 75 mg Capsule 75 mg PO BID Qty: 6 0RF prednisone 20 mg Tablet 60 mg PO DAILY Qty: 21 0RF Rx Instructions: take 60 mg X 5 days then 40 mg X 3 days Continued albuterol sulfate 2.5 mg /3 mL (0.083 %) solution for nebulization 2.5 mg inhalation Q4H PRN (Reason: shortness of breath or wheezing) Qty: 180 0RF ibuprofen 800 MG tablet 800 mg PO BID PRN PRN levalbuterol tartrate 45 mcg/actuation HFA aerosol inhaler 2 puff INHALATION Q4H PRN Patient Comments: INHALE 2 PUFFS BY MOUTH EVERY 4 TO 6 HOURS NEEDED FOR SHORTNESS OF BREATH Discharge Instructions Stand Alone Forms: Nursing Discharge Form Referrals: Chelsi Torres [Primary Care Provider] - 08/28/24 1:15 pm Montserrat Sheldon PA [PHYSICIANS CHILD LIFE ASSISTANT] - (Hx of asthma, in for flu and asthma exacerbation - was only on PRN albuterol at home- started on ICS as per latest recommendations SMART therapy for asthma . F/u within 2 weeks of discharge please ) Activity:: Activity as Tolerated Equipment/Supplies:: No Equipment Needed Diet:: As Tolerated DS: Summary Quality:SDOH Health Related Social Needs: Health related social needs problems related to housing/economic circumstances (Z59.89) DS: Data Vitals/I&O Vitals and I&O: Vital Signs Temperature 36.5 C 08/21/24 07:47 Temperature Source Temporal Artery Scan 08/21/24 07:47 Pulse 107 H 08/21/24 11:30 Pulse 116 H 08/20/24 09:00 Respiratory Rate 22 08/21/24 08:38 Respiratory Effort Short of Breath, Pursed Lip 08/20/24 02:26 Respiratory Depth Normal 08/20/24 02:26 Respiratory Pattern Normal 08/20/24 02:26 Blood Pressure 134/99 H 08/21/24 07:47 Blood Pressure Mean 105 08/20/24 08:01 Blood Pressure Position Sitting 08/20/24 02:26 Pulse Oximetry 92 08/21/24 11:19 Respiratory End-tidal CO2 30 08/20/24 03:00 Oxygen Delivery Method Room Air 08/21/24 11:19 Oxygen Flow Rate 0 08/21/24 11:19 Pain Level 0 08/21/24 07:47 Comment BP cycled twice, pT reports he feels ok. RN notified. 08/20/24 15:57 Intake & Output 08/20/24 08/21/24 08/21/24 23:59 11:59 23:59 Intake Total 410 / 420 Balance 410 / 420 Intake: IV Oral 400 / 400 Other: Urine Color Yellow Urine Odor Normal Comment pT reports he has voided today. pT reports has voided independently. Data Completed and Pending Labs on day of discharge: Labs from last 24 hours 08/21/24 06:50 WBC 14.98 H RBC 5.09 Hgb 15.2 Hct 44.1 MCV 87 MCH 29.9 MCHC 34.5 RDW 12.4 Plt Count 219 MPV 9.5 Sodium 142 Potassium 4.3 Chloride 105 Carbon Dioxide 30.5 Anion Gap 6.5 BUN 19 H Creatinine 0.9 Est GFR (CKD-EPI 2020) 119.31 Glucose 99 Calcium 9.2 Total Bilirubin 0.50 AST 15 ALT 36 Alkaline Phosphatase 50 Total Protein 7.0 Albumin 3.5 PFSH All Active Problems (Updated 08/20/24 @ 12:35 by Regina Hensley APRN) Discharge planning issues (Acute) On deep vein thrombosis (DVT) prophylaxis (Acute) Anxiety (Chronic) Asthma with severe exacerbation (Acute) Influenza A (Acute) Fracture of lateral malleolus of right ankle (Acute 10/08/18) Medical History (Updated 08/20/24 @ 12:35 by Regina Hensley APRN) Environmental and seasonal allergies Asthma Social History Smoking/Tobacco Use Status: Never Smoking risk assessment performed?: Yes Alcohol Intake: current Alcohol Intake frequency: a few times a week Drug use: Occasionally Substance use type: does not use Housing: house Do you feel safe at home: Yes Do you feel safe in your relationship?: Yes
== END 2024-08-21 14:43 | disposition home or self-care (01) | DRG 194 ==
LOC: ER 08-20 00:07 → ICU 08-20 02:18 → MS 08-20 12:19
PROVIDERS: Admitting Provider Family Medicine; Emergency Provider Nurse Practitioner Family; PCP Family Medicine; Visit Provider Family Medicine
DX: J10.1 Influenza due to other identified influenza virus with other respiratory manifestations (principal); J45.902 Unspecified asthma with status asthmaticus; F41.9 Anxiety disorder, unspecified; Z79.899 Other long term (current) drug therapy
CPT/HCPCS: 00123; 36415; 80048; 80053; 82805; 85027; 94640; 96361; 96365; 96366; 96375; 99291; J1650; 71046; 85025; 94664; 94760; 99223; 99233; 99239; J1885; J2919; J3475; J7512; J7613; J7620

== ENCOUNTER 2024-10-15 10:13 | Emergency (ER) | payer SELFPAY ==
[2024-10-15] VITALS (21 sets, daily range): BP systolic 145–155; BP diastolic 78–102; PULSE 88–122; RESP 17–22; TEMP 36.1; O2SAT 92–100
--- NOTE | 2024-10-15 10:15 | RT.EKG_ITS ---
APPROVED REPORT Exam: Resting ECG Reason for Exam: SOB Patient Location: E HR:88 bpm ECG Measurements Heart Rate 88 AXIS HI 109 P 40 QRSd 92 QRS 94 QT 343 T 7 QTc 416 Conclusion Sinus rhythm...normal P axis, V-rate 60- 99 No STEMI
--- NOTE | 2024-10-15 10:22 | ED.GENADUL_ITS ---
Discharge Plan Disposition Patient Disposition: Home Discharge Details Clinical Impression: Acute asthma exacerbation Primary Care Provider: Chelsi Torres ED Provider: Christian Duong Home Meds and New Rx's Prescriptions: Continued albuterol sulfate 2.5 mg /3 mL (0.083 %) solution for nebulization 2.5 mg inhalation Q4H PRN (Reason: shortness of breath or wheezing) Qty: 180 0RF ibuprofen 800 MG tablet 800 mg PO BID PRN PRN levalbuterol tartrate 45 mcg/actuation HFA aerosol inhaler 2 puff INHALATION Q4H PRN Patient Comments: INHALE 2 PUFFS BY MOUTH EVERY 4 TO 6 HOURS NEEDED FOR SHORTNESS OF BREATH ipratropium-albuterol 0.5 mg-3 mg(2.5 mg base)/3 mL Solution For Nebulization 3 ml UPD Q6H Qty: 90 0RF budesonide-formoterol [Symbicort] 80-4.5 mcg/actuation Hfa Aerosol Inhaler 2 puff inhalation BID Qty: 10.2 0RF Patient Comments: Needs a new prescription Discharge Instructions Instructions: Asthma in adults Additional Instructions: You are seen in the emergency department for shortness of breath. You received steroids and albuterol. Please return to the emergency department if you develop worsening shortness of breath. To have a primary care provider listed in [place]. You will receive a follow-up appointment there. If you develop chest pain or passout please return to the emergency department. Discharge Data Discharge Date/Time-TO BE ENTERED AT DEPARTURE: 10/15/24 13:10 HPI General Date/Time Provider Initiated Documentation: 10/15/24 10:22 . HPI Narrative: MDM This is a mildly tachypneic but not hypoxic 28-year-old male with history of reactive airway disease with an expiratory wheezes for which he received dexamethasone and multiple continuous nebulization treatments. No significant hypercarbia on venous blood gas and no acidemia. No significant infiltrate on chest x-ray. His labs were unremarkable. He had a negative viral swab. I discharged him with inhaled long-acting beta agonist and steroid. No trauma to chest to suggest pneumothorax. No history of syncope to suggest GI bleeding no history of ethanol abuse. Patient ambulated and did not feel short of breath. In the absence of hypoxia chest pain and hypotension I was not suspicious for PE so I did not send a D-dimer. He was able to maintain his oxygen saturations greater than 93%. I asked health coordinator Eva to have the patient seen by primary care provider as he has recently returned to the area. We discussed that he may or may not benefit from an outpatient CT scan of his chest as he did not reportedly have significant history of asthma during childhood. We discussed that he should return to the emergency department if you develop worsening shortness of breath chest pain or if he had any other concerns. In the absence of chest pain I did not feel that patient required troponin testing. He understood his return indications and was discharged with an empiric trial of expectant outpatient management. 4 PM Patient was able to pass ambulatory trial in the ED. He felt markedly improved. He was mildly tachycardic at the time of discharge however this is most likely secondary to nebulized beta agonist. I advised outpatient PCP follow-up. Patient was arranged outpatient follow-up with his PCP and general health. On repeat auscultation patient had improved aeration diffusely. I discharged him with an inhaler. HPI This 28-year-old male history of reactive airway disease arrived to the emergency department via private vehicle in the setting of shortness of breath. Patient reported that he was feeling well yesterday beyond a scratchy cough. He works standing floors. He reports that he uses inhaler on the way here but ran out of his preventative inhaler. He says that he has not had any recent fevers. He denies routine tobacco, and illicits. He suddenly felt short of breath 30 minutes ago. He has never had a PE nor DVT. Denies any falls fevers abdominal pain chest pain. Exam General: Well-appearing in no acute distress speaking in complete sentences. Head: Normocephalic, atraumatic. Eye: Extraocular eye movements intact. No conjunctival injection. No scleral icterus. Ear, nose, mouth, throat: Grossly normal inspection. Normal voice, handling secretions normally. Neck: Trachea midline. Cardiovascular: Well-perfused distal extremities.Rapid regular rate. Respiratory: Decreased breath sounds diffusely. Mild prolonged expiratory phase. Gastrointestinal: Nondistended abdomen. Musculoskeletal: No edema. Moving all 4 extremities spontaneously. Skin: Normal for age and race, grossly normal temperature and turgor. No acute rash. Neurologic: Alert and appropriate, no apparent acute deficits. Psychiatric: Mood and manner are appropriate. Grooming and personal hygiene are appropriate. Related Data Home Medications ?Medication ?Instructions ?Recorded ?Confirmed ibuprofen 800 mg tablet 800 mg PO BID PRN PRN 07/14/14 10/15/24 albuterol sulfate 2.5 mg/3 mL 2.5 mg (3 mL) inhalation Q4H PRN 08/12/24 10/15/24 (0.083 %) solution for nebulization shortness of breath or wheezing #180 mL levalbuterol tartrate 45 2 puff inhalation Q4H PRN 08/20/24 10/15/24 mcg/actuation aerosol inhaler budesonide-formoterol HFA 80 2 puff inhalation BID #10.2 grams 08/21/24 10/15/24 mcg-4.5 mcg/actuation aerosol inhaler (Symbicort) ipratropium 0.5 mg-albuterol 3 mg 3 ml UPD Q6H #90 mL 08/21/24 10/15/24 (2.5 mg base)/3 mL nebulization soln Previous Rx's ?Medication ?Instructions ?Recorded albuterol sulfate 2.5 mg/3 mL 2.5 mg (3 mL) inhalation Q4H PRN 08/12/24 (0.083 %) solution for nebulization shortness of breath or wheezing #180 mL budesonide-formoterol HFA 80 2 puff inhalation BID #10.2 grams 08/21/24 mcg-4.5 mcg/actuation aerosol inhaler (Symbicort) ipratropium 0.5 mg-albuterol 3 mg 3 ml UPD Q6H #90 mL 08/21/24 (2.5 mg base)/3 mL nebulization soln Allergies Allergy/AdvReac Type Severity Reaction Status Date / Time No Known Allergies Allergy Unverified 10/15/24 10:22 General Stated Complaint: SOB SELIN: 3 Course Vital Signs Vital signs: Vital Signs Temperature 36.1 C L 10/15/24 10:17 Pulse 117 H 10/15/24 10:17 Respiratory Rate 20 10/15/24 10:17 Blood Pressure 155/102 H 10/15/24 10:17 Pulse Oximetry 97 10/15/24 10:17 Temperature 36.1 C L 10/15/24 10:21 Temperature Source Axillary 10/15/24 10:21 Pulse 117 H 10/15/24 10:21 Respiratory Rate 20 10/15/24 10:21 Blood Pressure 155/102 H 10/15/24 10:21 Blood Pressure Position Sitting 10/15/24 10:21 Pulse Oximetry 97 10/15/24 10:21 Oxygen Delivery Method Room Air 10/15/24 10:21 Oxygen Flow Rate 0 10/15/24 10:21 Pain Level 0 10/15/24 10:21 Medical Decision Making Quality:SDOH Health Related Social Needs: Health related social needs problems related to housin g/economic circumstances (Z59.89) PFSH All Active Problems (Updated 10/15/24 @ 12:55 by Christian Duong MD) Acute asthma exacerbation (Acute) Anxiety (Chronic) Asthma with severe exacerbation (Acute) Influenza A (Acute) Fracture of lateral malleolus of right ankle (Acute 10/08/18) Medical History (Updated 10/15/24 @ 12:55 by Christian Duong MD) Environmental and seasonal allergies Asthma Social History Smoking/Tobacco Use Status: Never Smoking risk assessment performed?: Yes Alcohol Intake: current Alcohol Intake frequency: a few times a week Drug use: Occasionally Substance use type: does not use Housing: house Do you feel safe at home: Yes Do you feel safe in your relationship?: Yes
[2024-10-15] MEDS: ALBUTEROL 15 MG, SODIUM CHLORIDE 0.9% FOR INH. 3 ML UPD ×2 (10:40→11:50)
[2024-10-15 10:51] LABS: BE (Venous) 3 mmol/L (-2-3); HCO3 (Venous) 29 mmol/L (23-28); O2 Sat (Venous) 58 %; TCO2 (Venous) 26 mmol/L (24-29); pCO2 (Venous) 53 mmHg (41-51); pH (Venous) 7.34 (7.31-7.41); pO2 (Venous) 33 mmHg
[2024-10-15 10:54] LABS: Abs Immature Grans 0.03 10^3/uL (0.0-0.06); Absolute Basophil Count 0.04 10^3/uL (0.0-0.2); Absolute Eosinophil Count 0.48 10^3/uL (0.0-0.7); Absolute Lymphocyte Count 1.98 10^3/uL (1.2-3.4); Absolute Monocyte Count 0.41 10^3/uL (0.1-0.8); Absolute Neutrophil Count 5.03 10^3/uL (1.2-6.7); Basophils % 0.5 %; HCT 44.2 % (40.0-50.0); HGB 15.5 g/dL (13.5-17.5); Immature Grans % 0.4 %; Lymphocytes % 24.8 %; MCH 29.9 pg (27.0-33.0); MCHC 35.1 % (32.0-36.0); MCV 85 fL (80-95); MPV 9.4 fL (8.0-11.0); Monocytes % 5.1 %; Neutrophils % 63.2 %; Platelet Count 202 10^3/uL (130-400); RBC 5.19 10^6/uL (4.36-5.78); RDW 12.7 % (11.8-14.1); RDW-SD 38.6 fL; WBC 7.97 10^3/uL (4.4-10.8)
[2024-10-15 11:05] LABS: BUN 18 mg/dL (7-18); CREATININE 1.1 mg/dL (0.70-1.30); Calcium 9.6 mg/dL (8.5-10.1); Chloride 106 mmol/L (98-107); Estimated GFR 93.77 (mL/min/1.73m2); Glucose 118 mg/dL (74-106); Sodium 144 mmol/L (136-145)
--- NOTE | 2024-10-15 11:22 | DI.RAD_ITS ---
Exam(s) XR PORTABLE CHEST AP EXAM: XR PORTABLE CHEST AP CLINICAL HISTORY: SOB TECHNIQUE: 2D digital imaging was performed of the chest. One image was obtained. An AP view was ob tained. COMPARISON: CR,XR XR CHEST 2V PA LATERAL from 08/19/2024 FINDINGS: MEDIASTINUM: Normal. HEART: Normal. PULMONARY VASCULATURE: Normal. LUNGS: Clear. PLEURAL SPACE: No pleural effusion or pneumothorax. BONE:Within normal limits for the patient's age. OTHER FINDINGS:Normal. IMPRESSION: No acute pulmonary findings. DATA REPOSITORY: RADIATION DOSE DELIVERED:
[2024-10-15] MEDS: Dexamethasone 4 MG TAB 10 MG PO (11:32)
[2024-10-15 11:41] LABS: COVID-19 PCR Negative (Negative); Influenza A PCR Negative (Negative); Influenza B PCR Negative (Negative); RSV PCR Negative (Negative); Source Nasopharynx
[2024-10-15] MEDS: Budesonide/Formoterol 160/4.5 6 GM 60 PUFF INH IH (13:08)
== END 2024-10-15 13:10 | disposition home or self-care (01) ==
PROVIDERS: Emergency Provider Emergency Medicine; PCP Family Medicine
DX: J45.901 Unspecified asthma with (acute) exacerbation (principal); Z59.89 Other problems related to housing and economic circumstances
CPT/HCPCS: 80048; 82805; 87637; 93005; 94640; 94644; 94645; 99285; 71045; 85025; 93010; 99284; J7613; J8540